=== PATIENT | male | born 1965 | race Caucasian/White ===

== ENCOUNTER 2018-10-06 19:49 | Inpatient (IN) | payer OTHER, SELFPAY ==
[2018-10-06] VITALS (15 sets, daily range): BP systolic 78–150; BP diastolic 53–99; PULSE 71–95; RESP 13–21; TEMP 36.6–36.7; O2SAT 94–100; BMI 26.2; BMI 24.5
[2018-10-06] MEDS: DiphenhydrAMINE 50 MG/ML Syringe IV ×2 (20:02→23:35)
[2018-10-06] MEDS: 0.9% Normal Saline 1,000 ML 1000 ML IV (20:02)
[2018-10-06] MEDS: MethylPREDNISolone 125 MG/2 ML Vial IV (20:03)
--- NOTE | 2018-10-06 20:04 | ED.RN ---
PT PRESENTS TO ED, WITH THROAT SWELLING DIFFICULTY BREATHING AND SWALLOWING, AND A VOICE CHANGE. 18Q PIV RAC PLACED BY FIDELIA ARAUJO AT 19:50. RAPID AIRWAY TEAM CALLED AT 19:58. 18G PIV IN THE LAC PLACED BY MEDIC AT 20:03. PT WAS GIVEN 50MG OF BENADRYL , 125MG OF SOLU-MEDROL, 200MG OF PEPCID BY FIDELIA ARELLANO IN THE LAC. 1000ML BOLUS OF NS INFUSING IN THE RAC.
[2018-10-06 20:06] LABS: Absolute Lymphocyte Count 3.33 X10^3/ul (0.83-4.51); Absolute Neutrophil Count 8.8 X10^3/uL (2.0-7.7); Basophil# 0.04 X10^3/uL; Basophil% 0.3 % (0-1); Eosinophil# 0.18 X10^3/uL; Eosinophils% 1.3 % (0-5); Hematocrit 37.2 % (40-54); Lymphocyte # 3.33 X10^3/ul (4.0); Lymphocyte % 24.9 % (19-41); Mean Corp Hgb Conc 34.9 g/gl (32-36); Mean Corpuscular Volume 91.6 fL (80-94); Mean Platelet Vol. 9.1 fl (6.2-12.0); Monocyte# 1.01 X10^3/uL; Monocyte% 7.6 % (0-10); Neutrophil # 8.75 X10^3/uL (2.7-7.7); Neutrophil % 65.5 % (47-70); Platelet Count 291 K/mm3 (150-450); RBC Distribution Width CV 13.9 % (11.6-14.6); Red Blood Count 4.06 M/mm3 (4.6-6.2); White Blood Count 13.4 K/mm3 (4.4-11.0)
--- NOTE | 2018-10-06 20:10 | PCM.HP.STD ---
Problem List (1) Angioedema Status: Acute Qualifiers: Encounter type: initial encounter Qualified Code(s): T78.3XXA - Angioneurotic edema, initial encounter (2) HTN (hypertension) Status: Chronic Qualifiers: Hypertension type: essential hypertension Qualified Code(s): I10 - Essential (primary) hypertension (3) HLD (hyperlipidemia) Status: Chronic Qualifiers: Hyperlipidemia type: unspecified Qualified Code(s): E78.5 - Hyperlipidemia, unspecified (4) Tobacco use Status: Chronic (5) Diabetes mellitus, type II Status: Chronic Qualifiers: Diabetes mellitus termite treater helper insulin use: unspecified senior living insulin use status Diabetes mellitus complication status: with unspecified complications Qualified Code(s): E11.8 - Type 2 diabetes mellitus with unspecified complications History of Present Illness Date of Admission: 10/06/18 Chief Complaint: Throat swelling, dyspnea, fullness starting afternoon The patient is a 52 y/o M w/ PMHx: HTN, HLD, Diabetes mellitus type II, Tobacco use who presents to the [facility] ED on 10/06/18 with history of no recent home medication changes x 6 years, notes belief that he is on ACEI with only recent intervention pneumonia vaccination the day prior who notes onset of progressively worsening throat edema, swelling, fullness including of the posterior oropharynx and his uvula with difficulty breathing starting earlier in the day and worsening. In the ED work-up included T 98, heart rate 95, BP 150/99, respiratory rate 21, her percent room air, CBC with WBC 13.4, hemoglobin 13, platelet 291 with left shift, pending CMP upon evaluation of patient. Given patient's appearance with notable angioedema primarily in the posterior pharynx with notably swollen uvula and garbled voice although no stridor airway call performed per ED physician who discussed case with Dr. Alex and also anesthesiology. In the ED patient administered Solu-Medrol 125 mg IV x1, famotidine 20 mg IV x1, Benadryl 50 mill grams IV x1 in addition to normal saline. Past Medical History Past Medical History (Chronic Problems): Chronic Problems HTN (hypertension) (Chronic) HLD (hyperlipidemia) (Chronic) Tobacco use (Chronic) Diabetes mellitus, type II (Chronic) Allergies No Known Allergies Allergy (Verified 10/06/18 19:50) Home Medications: Ambulatory Orders Medication Instructions Recorded Hydrocodone Bitart/Apap 5-325 1 - 2 tablet PO Q4H PRN PRN #20 08/22/15 [[place] 5/325] tablet Metformin(XR) [Glucophage Xr] 08/22/15 Naproxen [Naprosyn] 500 mg PO BID #20 tablet 08/22/15 Surgical History: no surgical history Psychiatric History: No pertinent psych hx Lives: Alone Smoking Status: Current every day smoker - Patient currently smokes 1/2 pack/day cigarette tobacco usage. Tobacco Use: Cigarettes Alcohol: Occasional - Patient notes 1-2 approximate 4 ounce whiskey type drinks every other day. Drugs: None - *Family History Maternal History Items: - - Patient has a maternal family history of cancer, cannot specify type. Paternal History Items: - - Patient notes a paternal family history of hypertension diabetes. Review of Systems Constitutional: Reports: Malaise, Weakness, Fatigue. Denies: Chills, Fever, Weight Change HEENT: Reports: Difficulty Swallowing, - - Market throat fullness, garbled speech associated.. Denies: Head Aches, Sinus Congestion, Sinus Drainage Cardiovascular: Denies: Chest Pain, Palpitations Respiratory: Reports: Shortness of Breath, Shortness of breath at rest, Shortness of breath upon exertion, - - Throat fullness.. Denies: Cough, Sputum production Gastrointestinal: Denies: Abdominal Pain, Nausea, Vomiting Genitourinary: Denies: Dysuria Musculoskeletal: Denies: Joint Pain, Joint Tenderness Skin: Denies: Rash, Wounds Neurological: Reports: Change in Speech. Denies: Focal weakness, Numbness, Tingling Psychiatric: Denies: Anxiety, Depression, Homicidal Ideations, Suicidal Ideations Hematologic/ Lymphatic: Denies: Easy Bruising, Easy Bleeding VTE Information - Inpt Only VTE Present on Admission: No VTE Mechan Device Prophylaxis: SCD's VTE Pharm Prophylaxis ordered?: Yes Subjective: Seated upright in ED bed, fatigued appearance, mildly anxious, garbled voice but no stridor evident. Objective: Physical Examination: General: awake, alert, oriented x 3 and cooperative, seated upright in the ED bed, mildly anxious, garbled voice but no obvious stridor, no evidence of respiratory distress. Skin: normal color, turgor, no icterus, cyanosis. HEENT: AT/NC, EOMI, PERRLA, dry MM, audible posterior oropharynx edema, notable uvula edema, garbled voice, no stridor, no carotid bruits or JVD noted. Lungs: CTA bilaterally, moderate effort, moderate decrease BL bases, no rales, ronchi or wheezing. Heart: Regular rate and rhythm; no gallop, rub audible. Abdomen: soft, NTTP, ND, normal BS, no HSM. Extremities: no cyanosis, clubbing, or edema. Neurological: patient awake, alert, oriented x 3; cognitive function intact; pupils equally reactive to light and accomodation; cranial nerves II-XII grossly normal, moving all 4 extremities, no focal deficits, strength moderately to severely global decrease given acute presentation. Psychiatric: affect appears mildly fatigued and mildly anxious, no acute evidence of depressive feelings. - Physical Exam Vital Signs Temp Pulse Resp BP Pulse Ox 98.0 F 93 17 150/99 H 100 10/06/18 19:51 10/06/18 19:57 10/06/18 19:57 10/06/18 19:57 10/06/18 19:57 Oxygen Delivery Method Room Air Weight: 172 lb 2.896 oz Body Mass Index (BMI) 26.2 Laboratory Tests Past 24 Hrs 10/06/18 10/06/18 19:55 19:55 WBC Pending RBC Pending Hgb Pending Hct Pending MCV Pending MCH Pending MCHC Pending RDW Pending RDW Differential Pending Plt Count Pending Neut % (Auto) Pending Absolute Neuts (auto) Pending Total Counted Pending Sodium Pending Potassium Pending Chloride Pending Carbon Dioxide Pending Anion Gap Pending BUN Pending Creatinine Pending Est GFR (MDRD) Af Amer Pending Est GFR (MDRD) Non-Af Pending BUN/Creatinine Ratio Pending Glucose Pending Calcium Pending Total Bilirubin Pending AST Pending ALT Pending Alkaline Phosphatase Pending Total Protein Pending Albumin Pending Assessment/Plan All Active Problems Angioedema (Acute) The patient is a 52 y/o M w/ PMHx: HTN, HLD, Diabetes mellitus type II, Tobacco use who presents to the [facility] ED on 10/06/18 with history of no recent home medication changes x 6 years, notes belief that he is on ACEI with only recent intervention pneumonia vaccination the day prior who notes onset of progressively worsening throat edema, swelling, fullness including of the posterior oropharynx and his uvula with difficulty breathing starting earlier in the day and worsening. (1) Anaphylactic reaction, Angioedema, possibly secondary to Chronic Medications, Including ACEI versus recent Vaccination: Airway team called to ED, pending evaluation, given edema, expect intubation likely, following secured airway will admit to the ICU, maintain on vent, continue with sedation, ICU consultation per protocol, continue scheduled benadryl, pepcid and IV solumedrol regimen, will hold any concerning medications. (2) Diabetes mellitus type II: Hold oral home regimen, continue home insulin regimen, NPO status, accu checks w/ ISS. (3) Tobacco Abuse: Encouraged cessation, inpatient consultation per RT. (4) Hypertension: As noted suspect angioedema associated w/ medication, holding, IV hydralazine in interim. 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 (6) ? Heavier EtOH Use: Patient with usually 1-2 whiskey drinks daily to every other day, suspect may be heavier. Continue to monitor and if necessary initiate CIWA protocol, MVI, thiamine and folic acid. Mag and Phos pending. (7) GERD: IV Famotidine. (8) DVT Prophylaxis: SCDs, lovenox. Code Visit Inpatient E&M: 05056 Init Hosp L3
[2018-10-06 20:12] LABS: POSITIVE COUNT NO; POSITIVE DIFFERENTIAL NO; POSITIVE MORPHOLOGY NO
--- NOTE | 2018-10-06 20:14 | HP.PCM_ITS ---
Problem List (1) Angioedema Status: Acute Qualifiers: Encounter type: initial encounter Qualified Code(s): T78.3XXA - Angioneurotic edema, initial encounter (2) HTN (hypertension) Status: Chronic Qualifiers: Hypertension type: essential hypertension Qualified Code(s): I10 - Essential (primary) hypertension (3) HLD (hyperlipidemia) Status: Chronic Qualifiers: Hyperlipidemia type: unspecified Qualified Code(s): E78.5 - Hyperlipidemia, unspecified (4) Tobacco use Status: Chronic (5) Diabetes mellitus, type II Status: Chronic Qualifiers: Diabetes mellitus termite control service representative insulin use: unspecified assisted insulin use status Diabetes mellitus complication status: with unspecified complications Qualified Code(s): E11.8 - Type 2 diabetes mellitus with unspecified complications History of Present Illness Date of Admission: 10/06/18 Chief Complaint: Throat swelling, dyspnea, fullness starting afternoon The patient is a 52 y/o M w/ PMHx: HTN, HLD, Diabetes mellitus type II, Tobacco use who presents to the [facility] ED on 10/06/18 with history of no recent home medication changes x 6 years, notes belief that he is on ACEI with only recent intervention pneumonia vaccination the day prior who notes onset of progressively worsening throat edema, swelling, fullness including of the posterior oropharynx and his uvula with difficulty breathing starting earlier in the day and worsening. In the ED work-up included T 98, heart rate 95, BP 150/ 99, respiratory rate 21, her percent room air, CBC with WBC 13.4, hemoglobin 13, platelet 291 with left shift, pending CMP upon evaluation of patient. Given patient's appearance with notable angioedema primarily in the posterior pharynx with notably swollen uvula and garbled voice although no stridor airway call performed per ED physician who discussed case with Dr. Alex and also anesthesiology. In the ED patient administered Solu-Medrol 125 mg IV x1, famotidine 20 mg IV x1, Benadryl 50 mill grams IV x1 in addition to normal saline. Past Medical History Past Medical History (Chronic Problems): Chronic Problems HTN (hypertension) (Chronic) HLD (hyperlipidemia) (Chronic) Tobacco use (Chronic) Diabetes mellitus, type II (Chronic) Allergies No Known Allergies Allergy (Verified 10/06/18 19:50) Home Medications: Ambulatory Orders Medication Instructions Recorded Hydrocodone Bitart/Apap 5-325 1 - 2 tablet PO Q4H PRN PRN #20 08/22/15 [[place] 5/325] tablet Metformin(XR) [Glucophage Xr] 08/22/15 Naproxen [Naprosyn] 500 mg PO BID #20 tablet 08/22/15 Surgical History: no surgical history Psychiatric History: No pertinent psych hx Lives: Alone Smoking Status: Current every day smoker - Patient currently smokes 1/2 pack/day cigarette tobacco usage. Tobacco Use: Cigarettes Alcohol: Occasional - Patient notes 1-2 approximate 4 ounce whiskey type drinks every other day. Drugs: None - *Family History Maternal History Items: - - Patient has a maternal family history of cancer, cannot specify type. Paternal History Items: - - Patient notes a paternal family history of hypertension diabetes. Review of Systems Constitutional: Reports: Malaise, Weakness, Fatigue. Denies: Chills, Fever, Weight Change HEENT: Reports: Difficulty Swallowing, - - Market throat fullness, garbled speech associated.. Denies: Head Aches, Sinus Congestion, Sinus Drainage Cardiovascular: Denies: Chest Pain, Palpitations Respiratory: Reports: Shortness of Breath, Shortness of breath at rest, Shortness of breath upon exertion, - - Throat fullness.. Denies: Cough, Sputum production Gastrointestinal: Denies: Abdominal Pain, Nausea, Vomiting Genitourinary: Denies: Dysuria Musculoskeletal: Denies: Joint Pain, Joint Tenderness Skin: Denies: Rash, Wounds Neurological: Reports: Change in Speech. Denies: Focal weakness, Numbness, Tingling Psychiatric: Denies: Anxiety, Depression, Homicidal Ideations, Suicidal Ideations Hematologic/ Lymphatic: Denies: Easy Bruising, Easy Bleeding VTE Information - Inpt Only VTE Present on Admission: No VTE Mechan Device Prophylaxis: SCD's VTE Pharm Prophylaxis ordered?: Yes Subjective: Seated upright in ED bed, fatigued appearance, mildly anxious, garbled voice but no stridor evident. Objective: Physical Examination: General: awake, alert, oriented x 3 and cooperative, seated upright in the ED bed, mildly anxious, garbled voice but no obvious stridor, no evidence of respiratory distress. Skin: normal color, turgor, no icterus, cyanosis. HEENT: AT/NC, EOMI, PERRLA, dry MM, audible posterior oropharynx edema, notable uvula edema, garbled voice, no stridor, no carotid bruits or JVD noted. Lungs: CTA bilaterally, moderate effort, moderate decrease BL bases, no rales, ronchi or wheezing. Heart: Regular rate and rhythm; no gallop, rub audible. Abdomen: soft, NTTP, ND, normal BS, no HSM. Extremities: no cyanosis, clubbing, or edema. Neurological: patient awake, alert, oriented x 3; cognitive function intact; pupils equally reactive to light and accomodation; cranial nerves II-XII grossly normal, moving all 4 extremities, no focal deficits, strength moderately to severely global decrease given acute presentation. Psychiatric: affect appears mildly fatigued and mildly anxious, no acute evidence of depressive feelings. - Physical Exam Vital Signs Temp Pulse Resp BP Pulse Ox 98.0 F 93 17 150/99 H 100 10/06/18 19:51 10/06/18 19:57 10/06/18 19:57 10/06/18 19:57 10/06/18 19:57 Oxygen Delivery Method Room Air Weight: 172 lb 2.896 oz Body Mass Index (BMI) 26.2 Laboratory Tests Past 24 Hrs 10/06/18 10/06/18 19:55 19:55 WBC Pending RBC Pending Hgb Pending Hct Pending MCV Pending MCH Pending MCHC Pending RDW Pending RDW Differential Pending Plt Count Pending Neut % (Auto) Pending Absolute Neuts (auto) Pending Total Counted Pending Sodium Pending Potassium Pending Chloride Pending Carbon Dioxide Pending Anion Gap Pending BUN Pending Creatinine Pending Est GFR (MDRD) Af Amer Pending Est GFR (MDRD) Non-Af Pending BUN/Creatinine Ratio Pending Glucose Pending Calcium Pending Total Bilirubin Pending AST Pending ALT Pending Alkaline Phosphatase Pending Total Protein Pending Albumin Pending Assessment/Plan All Active Problems Angioedema (Acute) The patient is a 52 y/o M w/ PMHx: HTN, HLD, Diabetes mellitus type II, Tobacco use who presents to the [facility] ED on 10/06/18 with history of no recent home medication changes x 6 years, notes belief that he is on ACEI with only recent intervention pneumonia vaccination the day prior who notes onset of progressively worsening throat edema, swelling, fullness including of the posterior oropharynx and his uvula with difficulty breathing starting earlier in the day and worsening. (1) Anaphylactic reaction, Angioedema, possibly secondary to Chronic Medications, Including ACEI versus recent Vaccination: Airway team called to ED, pending evaluation, given edema, expect intubation likely, following secured airway will admit to the ICU, maintain on vent, continue with sedation, ICU consultation per protocol, continue scheduled benadryl, pepcid and IV solumedrol regimen, will hold any concerning medications. (2) Diabetes mellitus type II: Hold oral home regimen, continue home insulin regimen, NPO status, accu checks w/ ISS. (3) Tobacco Abuse: Encouraged cessation, inpatient consultation per RT. (4) Hypertension: As noted suspect angioedema associated w/ medication, holding, IV hydralazine in interim. 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 (6) ? Heavier EtOH Use: Patient with usually 1-2 whiskey drinks daily to every other day, suspect may be heavier. Continue to monitor and if necessary initiate CIWA protocol, MVI, thiamine and folic acid. Mag and Phos pending. (7) GERD: IV Famotidine. (8) DVT Prophylaxis: SCDs, lovenox. Code Visit Inpatient E&M: 25098 Init Hosp L3
[2018-10-06 20:20] LABS: ALB/GLOB Ratio 1.2 RATIO (0.9-2.4); AST(SGOT) 44 U/L (15-37); Alanine Aminotransfer ALT/SGPT 45 U/L (16-61); Albumin, Serum 4.4 g/dL (3.2-5.0); Alkaline Phosphatase 74 U/L (45-117); Anion Gap 9 (5-15); BUN 16 mg/dL (7-18); BUN/Creat Ratio 14.2 RATIO (10-20); Calcium,Total 9.9 mg/dL (8.5-10.1); Chloride 101 mmol/L (98-107); Creatinine, Serum 1.13 mg/dL (0.70-1.30); EST Glomerular Filtration Rate 72 mL/min (>60); Est Glom Filt Rate - Afr Amer 87 mL/min (>60); Globulin 3.6 g/dL (2.2-4.2); Glucose 56 mg/dL (74-106); Potassium 3.8 mmol/L (3.5-5.1); Sodium Level 134 mmol/L (136-145)
--- NOTE | 2018-10-06 20:22 | ED.RN ---
2% LIDOCAINE 50MG 20:23 RAC, 200MG PROPOFOL 2023 RAC, 180MG SUCC 2023 RAC BY AIRWAY TEAM, INTUBATION 2024 7.5 TUBE, 19.[address] AT LIP INTUBATION BY DR. SAVAGE.
[2018-10-06] MEDS: Propofol 10MG/Ml 1,000 MG/100 ML Bottle 4.686 MG CONT INF (20:28)
[2018-10-06] MEDS: morphine 10 MG/ML Syringe IV (20:34)
[2018-10-06] MEDS: Midazolam 2 MG/2 ML Syringe IV (20:37)
--- NOTE | 2018-10-06 20:55 | RAD_ITS ---
STUDY: X-RAY CHEST REASON FOR EXAM: Male, 52 years old. NG tube and ET tube placement TECHNIQUE: 1 view COMPARISON: None. FINDINGS: The lungs are clear and expanded. There is no demonstrated pleural abnormality. An NG tube and ET tube are in place with the ET tube 3.4 cm above the ofelia Normal size heart. Normal mediastinum and opal. Normal visualized pulmonary arteries. Normal visualized aortic arch and descending thoracic aorta. Normal visualized thoracic spine. Normal visualized ribs, clavicles, and shoulders. There is no demonstrated abnormality of the visualized soft tissue structures of the upper abdomen. RAD/Chest 1 View (Portable) IMPRESSION: No acute findings in the lungs. An NG tube and ET tube are in place with the ETT 3.4 cm above the ofelia Electronically Signed: Florentin Garibay MD at 2:42 EDT Tel , Service support ,
[2018-10-06] MEDS: Succinylcholine Chloride 200 MG/10 ML Vial 180 MG IV (20:57)
[2018-10-06] MEDS: Propofol 200 MG/20 ML Vial IV BOLUS (20:57)
[2018-10-06] MEDS: Lidocaine 2% 100 MG/5 ML Syringe 50 MG IV BOLUS (20:57)
[2018-10-06] MEDS: Ketamine HCl 500 MG/5 ML Vial 150 MG IV (21:26)
--- NOTE | 2018-10-06 21:36 | ED.RN ---
REPORT GIVEN TO FIDELIA MUSTAFA AT 1576 FOR ICU BED 1.
--- NOTE | 2018-10-06 21:47 | ED.DCSUM_ITS ---
- ER Visit Summary Date of Service: 10/06/18 Chief Complaint: Throat swelling History of Present Illness: The patient is a 52 M. Who presents to the emergency department with atraumatic swelling. The patient states that he began early this evening. He states he felt like his throat was closing and he was having difficulty breathing. The patient is on an HANY inhibitor. He is never had this before. He denies any fevers or chills. He denies any shortness of breath, but feels like his throat is closing. Physical Examination: Exam is relatively unremarkable except for examination of the oropharynx. He does have rather significant angioedema of the soft palate and posterior oropharynx with significant swelling of the uvula and compression down to the base of the tongue. There was no stridor. He is tolerating secretions. Test Results: [] Emergency Department Course and Treatment: The patient does have significant angioedema with compression of his oropharynx. Airway team was activated. Patient was treated with antiallergic medication with really no improvement. I discussed with the patient with Dr. Mitchell and Dr. Man. Decision was made to intubate the patient in the emergency department. This was done by anesthesia. The patient was intubated with the glide scope. There was significant swelling of the posterior oropharynx down into the supraglottic area. Chest x-ray does show the tube to be in good position. The patient will be admitted for further care of his angioedema. Treatment Plan: [] Disposition: Admission Impression: 1. Acute angioedema 2. Respiratory failure This note was generated with [employer] software. It may contain incorrect words, spelling, and punctuation that were not noted in review of the chart prior to signing
--- NOTE | 2018-10-06 22:13 | ED.RN ---
CALLED PT'S BOSBennett DUBOIS PER HIS REQUEST PRIOR TO BEING INTUBATED. NOTIFIED LALO THAT DUE TO A MEDICAL EMERGENCY HE WOULD NOT BE ABLE TO COME TO WORK.
[2018-10-06 22:31] LABS: Magnesium 1.6 mg/dL (1.6-2.6)
[2018-10-06] MEDS: 0.9% Normal Saline 1,000 ML 150 ML IV (22:40)
[2018-10-06] MEDS: Chlorhexidine 15 ML PO (22:40)
--- NOTE | 2018-10-06 23:21 | NURSING ---
Tele monitor did not take a 2245 blood pressure
[2018-10-06 23:24] LABS: CPK Total, Creatine Kinase 902 U/L (39-308); Triglycerides 389 mg/dL
[2018-10-06] MEDS: 0.9% NaCl Peripheral Flush Adult/Peds IV (23:35)
[2018-10-06 23:40] LABS: Alcohol, Blood (Medical)-Serum < 3.0 mg/dL
[2018-10-07] VITALS (31 sets, daily range): BP systolic 82–160; BP diastolic 59–99; PULSE 52–72; RESP 12–18; TEMP 35.9–37.2; O2SAT 95–99
[2018-10-07 00:06] LABS: Bedside Glucose 132 mg/dL (70-110)
[2018-10-07 00:41] LABS: Amphetamine Urine VISTA NEGATIVE (<1000 ng/mL); Barbiturate Urine VISTA NEGATIVE (< 200 ng/mL); Benzodiazepine Urine VISTA POSITIVE (< 200 ng/mL); Cocaine Urine VISTA NEGATIVE (< 300 ng/mL); Ecstacy Urine VISTA NEGATIVE (< 500 ng/mL); Methadone Urine VISTA NEGATIVE (< 300 ng/mL); PCP Urine VISTA NEGATIVE (< 25 ng/mL); THC Urine VISTA NEGATIVE (< 50 ng/mL); Vista UDS pH Range 6
--- NOTE | 2018-10-07 02:31 | EKG12_ITS ---
Test Reason : ASHRADER Blood Pressure : / mmHG Vent. Rate : 065 BPM Atrial Rate : 065 BPM P-R Int : 152 ms QRS Dur : 106 ms QT Int : 404 ms P-R-T Axes : 023 009 004 degrees QTc Int : 420 ms Normal sinus rhythm Normal ECG No previous ECGs available Confirmed by CARLO MEJIA, TALAT ([id number]), editor department FELIX ALLISON ([id number]) on 10/16/2018 11:27:09 AM Referred By: RIKI Confirmed By:TALAT MATOS MD
[2018-10-07] MEDS: 0.9% Normal Saline 1,000 ML 150 ML IV (04:33)
[2018-10-07 04:53] LABS: Absolute Lymphocyte Count 0.88 X10^3/ul (0.83-4.51); Absolute Neutrophil Count 10.7 X10^3/uL (2.0-7.7); Basophil# 0.01 X10^3/uL; Basophil% 0.1 % (0-1); Eosinophil# 0.01 X10^3/uL; Eosinophils% 0.1 % (0-5); Hematocrit 32.3 % (40-54); Hemoglobin 10.7 g/dl (13.0-16.5); Lymphocyte # 0.88 X10^3/ul (4.0); Lymphocyte % 7.5 % (19-41); Mean Corp Hgb Conc 33.1 g/gl (32-36); Mean Corpuscular Hgb 30.3 pg (27.0-32.0); Mean Corpuscular Volume 91.5 fL (80-94); Mean Platelet Vol. 9.5 fl (6.2-12.0); Monocyte# 0.16 X10^3/uL; Monocyte% 1.4 % (0-10); Neutrophil # 10.68 X10^3/uL (2.7-7.7); Neutrophil % 90.6 % (47-70); Platelet Count 255 K/mm3 (150-450); RBC Distribution Width CV 13.6 % (11.6-14.6); RBC Distribution Width SD 44.3 fl (35.1-43.9); Red Blood Count 3.53 M/mm3 (4.6-6.2); White Blood Count 11.8 K/mm3 (4.4-11.0)
[2018-10-07 04:54] LABS: POSITIVE COUNT NO; POSITIVE DIFFERENTIAL NO; POSITIVE MORPHOLOGY NO
[2018-10-07 05:13] LABS: Anion Gap 7 (5-15); BUN 17 mg/dL (7-18); Calcium,Total 8.2 mg/dL (8.5-10.1); Chloride 103 mmol/L (98-107); EST Glomerular Filtration Rate 83 mL/min (>60); Est Glom Filt Rate - Afr Amer 100 mL/min (>60); Estimated Creatinine Clearance 87.19 ml/min; Glucose 218 mg/dL (74-106); Potassium 5.5 mmol/L (3.5-5.1); Sodium Level 133 mmol/L (136-145)
[2018-10-07] MEDS: Insulin Lispro 100 UNIT/ML INSULN.PEN SC ×4 (05:30→23:04)
[2018-10-07] MEDS: DiphenhydrAMINE 50 MG/ML Syringe IV ×4 (05:31→23:04)
[2018-10-07 05:51] LABS: Bedside Glucose 250 mg/dL (70-110)
--- NOTE | 2018-10-07 05:55 | RAD_ITS ---
STUDY: X-RAY CHEST REASON FOR EXAM: Male, 52 years old. Shortness breath. TECHNIQUE: Single AP portable view of the chest. COMPARISON: October 06, 2018. FINDINGS: Stable NG tube and enteric tube. The lungs are clear and expanded. There is no demonstrated pleural abnormality. Normal size heart. Normal mediastinum and opal. Normal visualized pulmonary arteries. There is atherosclerotic calcification of the aortic arch with tortuosity. No visualized osseous changes. There is no demonstrated abnormality of the visualized soft tissue structures of the upper abdomen. RAD/Chest 1 View (Portable) IMPRESSION: No interval change. Electronically Signed: Cruz Arellano DO at 8:21 EDT Tel [phone], Service support ,
--- NOTE | 2018-10-07 06:27 | PCM.CON.CC ---
Reason for Consult Date of Consultation: 10/07/18 Reason for Consultation: Respiratory failure History of Present Illness: The patient is a 52-year-old male, with a history as outlined below, who presented to the emergency department on October 06 with shortness of breath and perceived throat fullness. History pertinent to the patient's hospitalization was obtained primarily via chart review, as the patient is currently intubated and there is no family available at the bedside. The patient reportedly has a history of diabetes mellitus, hypertension, hyperlipidemia, tobacco dependency and alcohol dependency as well. The patient reportedly consumed several whiskey drinks daily. Although unclear, it is believed that the patient is currently prescribed an HANY inhibitor on an outpatient basis. He was noted to have received a pneumococcal vaccination the day prior to the onset of his symptoms. On presentation to the emergency department, the patient was noted to be afebrile and hemodynamically stable. He was initially maintaining appropriate oxygen saturations on room air. Laboratory evaluation revealed an elevated white blood cell count to 13,000. Chemistry profile was largely unremarkable. Total CK was elevated to 902. Toxicology screen was positive for opiates and benzodiazepines. Alcohol level was negative. During his evaluation in the emergency department, the patient was noted to have significant angioedema. No stridor was noted on examination. The patient did require eventual intubation over concerns for airway patency. The patient was subsequently admitted to the medical intensive care unit for ongoing management. The patient initially presented to the ICU on a continuous Versed infusion. That medication was immediately discontinued. He was subsequently placed on Precedex for sedation. Overnight, the patient has been receiving Benadryl, Pepcid and steroids. FiO2 requirement is minimal. Past Medical History Past Medical History (Chronic Problems): Chronic Problems HTN (hypertension) (Chronic) HLD (hyperlipidemia) (Chronic) Tobacco use (Chronic) Diabetes mellitus, type II (Chronic) Allergies No Known Allergies Allergy (Verified 10/06/18 19:50) Home Medications: Ambulatory Orders Medication Instructions Recorded Hydrocodone Bitart/Apap 5-325 1 - 2 tablet PO Q4H PRN PRN #20 08/22/15 [[place] 5/325] tablet Metformin(XR) [Glucophage Xr] 08/22/15 Naproxen [Naprosyn] 500 mg PO BID #20 tablet 08/22/15 Surgical History: no surgical history Psychiatric History: No pertinent psych hx Lives: Alone Smoking Status: Current every day smoker Tobacco Use: Cigarettes Alcohol: Occasional - Patient notes 1-2 approximate 4 ounce whiskey type drinks every other day. Drugs: None - *Family History Maternal History Items: - - Patient has a maternal family history of cancer, cannot specify type. Paternal History Items: - - Patient notes a paternal family history of hypertension diabetes. Review of Systems Unable to obtain accurate/complete ROS d/t: Due to current intubation and mechanical ventilation status Patient Problems: Active and Suspected Problems Angioedema (Acute) Objective: The patient's most recent lab work, culture data and imaging studies have all been personally reviewed. - Physical Exam General: - - Intubated, sedated and mechanically ventilated. No ventilator dyssynchrony noted. HEENT: Atraumatic, PERRLA, Normocephalic Oral: No Gingival or Mucosal Lesions/ Ulcerations, - - No significant edema visible. Endotracheal and OG tubes in place Neck: Supple, No Nodes, Trachea Midline Lungs: - - Clear across anterior lung nicolas without appreciable wheezes, rales or rhonchi. Cardiovascular: Normal S1, Normal S2, No murmurs, Bradycardic Abdomen: Bowel Sounds Present, Soft, Non Tender, Non-Distended Extremities: No clubbing, No cyanosis, No edema Skin: No breakdown Musculoskeletal: No Tenderness to Palpation of Joints or Extremities, No Muscle Wasting Lymphatic: No Cervical, Supraclavicular, or Inguinal Adenopathy Neurological: - - No focal neurological deficits. Currently sedated. Vital Signs Temp Pulse Resp BP Pulse Ox 97.6 F L 60 14 105/74 98 10/07/18 05:00 10/07/18 06:00 10/07/18 06:00 10/07/18 06:00 10/07/18 06:00 Oxygen Delivery Method Mechanical Ventilator Weight: 171 lb 4.787 oz Body Mass Index (BMI) 24.5 Intake and Output for Last 24 Hours 10/05/18 10/06/18 10/07/18 23:59 23:59 23:59 Intake Total 238.8 / 238.8 981.5 / 981.5 Output Total 550 / 550 475 / 475 Balance -311.2 / -311.2 506.5 / 506.5 Laboratory Tests Past 24 Hrs 05/11/19 05/11/19 05/11/19 19:55 19:55 19:55 WBC 13.4 H RBC 4.06 L Hgb 13.0 Hct 37.2 L MCV 91.6 MCH 32.0 MCHC 34.9 RDW 13.9 RDW Differential 46.0 H Plt Count 291 MPV 9.1 Immature Gran % (Auto) 0.400 Neut % (Auto) 65.5 Lymph % (Auto) 24.9 [place] % (Auto) 7.6 Eos % (Auto) 1.3 Baso % (Auto) 0.3 Absolute Neuts (auto) 8.8 H Absolute Lymphs (auto) 3.33 Total Counted Not Reportable Sodium 134 L Potassium 3.8 Chloride 101 Carbon Dioxide 24.0 Anion Gap 9 BUN 16 Creatinine 1.13 Estim Creat Clear Calc 72.30 Est GFR (MDRD) Af Amer 87 Est GFR (MDRD) Non-Af 72 BUN/Creatinine Ratio 14.2 Glucose 56 L Calcium 9.9 Phosphorus 4.0 Magnesium 1.6 Total Bilirubin 0.20 AST 44 H ALT 45 Alkaline Phosphatase 74 Total Creatine Kinase Total Protein 8.0 Albumin 4.4 Globulin 3.6 Albumin/Globulin Ratio 1.2 Triglycerides Urine Opiates Screen Urine Methadone Screen Ur Barbiturates Screen Ur Phencyclidine Scrn Ur Amphetamines Screen U Methamphetamin-MDMA U Benzodiazepines Scrn Urine Cocaine Screen U Cannabinoids Screen Ur Drug Screen Comment Ethyl Alcohol 10/06/18 10/06/18 10/06/18 19:55 23:00 23:00 WBC RBC Hgb Hct MCV MCH MCHC RDW RDW Differential Plt Count MPV Immature Gran % (Auto) Neut % (Auto) Lymph % (Auto) [place] % (Auto) Eos % (Auto) Baso % (Auto) Absolute Neuts (auto) Absolute Lymphs (auto) Total Counted Sodium Potassium Chloride Carbon Dioxide Anion Gap BUN Creatinine Estim Creat Clear Calc Est GFR (MDRD) Af Amer Est GFR (MDRD) Non-Af BUN/Creatinine Ratio Glucose Calcium Phosphorus Magnesium Total Bilirubin AST ALT Alkaline Phosphatase Total Creatine Kinase 902 H Total Protein Albumin Globulin Albumin/Globulin Ratio Triglycerides 389 H Urine Opiates Screen POSITIVE H Urine Methadone Screen NEGATIVE Ur Barbiturates Screen NEGATIVE Ur Phencyclidine Scrn NEGATIVE Ur Amphetamines Screen NEGATIVE U Methamphetamin-MDMA NEGATIVE U Benzodiazepines Scrn POSITIVE H Urine Cocaine Screen NEGATIVE U Cannabinoids Screen NEGATIVE Ur Drug Screen Comment Ethyl Alcohol < 3.0 05/12/19 05/12/19 04:35 04:35 WBC 11.8 H RBC 3.53 L Hgb 10.7 L Hct 32.3 L MCV 91.5 MCH 30.3 MCHC 33.1 RDW 13.6 RDW Differential 44.3 H Plt Count 255 MPV 9.5 Immature Gran % (Auto) 0.300 Neut % (Auto) 90.6 H Lymph % (Auto) 7.5 L [place] % (Auto) 1.4 Eos % (Auto) 0.1 Baso % (Auto) 0.1 Absolute Neuts (auto) 10.7 H Absolute Lymphs (auto) 0.88 Total Counted Not Reportable Sodium 133 L Potassium 5.5 H Chloride 103 Carbon Dioxide 23.0 Anion Gap 7 BUN 17 Creatinine 1.00 Estim Creat Clear Calc 87.19 Est GFR (MDRD) Af Amer 100 Est GFR (MDRD) Non-Af 83 BUN/Creatinine Ratio 17.0 Glucose 218 H Calcium 8.2 L Phosphorus Magnesium Total Bilirubin AST ALT Alkaline Phosphatase Total Creatine Kinase Total Protein Albumin Globulin Albumin/Globulin Ratio Triglycerides Urine Opiates Screen Urine Methadone Screen Ur Barbiturates Screen Ur Phencyclidine Scrn Ur Amphetamines Screen U Methamphetamin-MDMA U Benzodiazepines Scrn Urine Cocaine Screen U Cannabinoids Screen Ur Drug Screen Comment Ethyl Alcohol POC Glucose 10/07/18 10/06/18 05:21 23:30 POC Glucose 250 H 132 H Clinical Impression(s) from Imaging Studies Chest X-Ray 10/06/18 20:55 IMPRESSION: No acute findings in the lungs. An NG tube and ET tube are in place with the ETT 3.4 cm above the ofelia Electronically Signed: Florentin Garibay MD at 2:42 EDT Tel , Service support , Assessment/Plan Active and Suspected Problems Angioedema (Acute) RECOMMENDATIONS: 1. Continue Precedex for sedation. 2. Continue thiamine and folate repletion. 3. Continue as needed bronchodilators. 4. Continue Benadryl, Pepcid and steroids as ordered. 5. Discontinue supplemental IV fluids and start tube feeds today. 6. Perform daily paired spontaneous awakening and breathing trials. Check cuff leak as well. 7. Obtain arterial blood gas this morning. 8. Continue appropriate ICU prophylaxis as ordered. IMPRESSIONS: 1. Acute respiratory failure The patient was intubated in the emergency department over concerns for airway patency in the setting of acute onset angioedema. Per documentation, the vast majority of the patient's airway edema was in the posterior oropharynx. The exact precipitating etiology for the patient's angioedema is still a bit unclear. We will need to clarify with the patient's family with regards to his home medication list, in particular, the use of an HANY inhibitor. In addition, there is some documentation that he received a pneumococcal vaccination the day prior to the onset of his symptoms. For now, we will plan to continue invasive mechanical ventilatory support. Continue scheduled Benadryl, Pepcid and steroids as ordered. Continue Precedex for sedation. Okay from my perspective to initiate tube feeds today. Plan to perform spontaneous awakening and breathing trials beginning tomorrow. 2. History of alcohol and tobacco dependency It is reasonable to continue as needed bronchodilators. The patient will be monitored for signs of alcohol withdrawal. Continue thiamine and folate repletion. Continue Precedex for sedation. 3. Hyperkalemia We will administer Kayexalate. 4. Hypertension/hyperlipidemia/GERD/diabetes mellitus Complicates care, management, recovery and prognosis. There is no current need for antihypertensives. Will need to clarify with the patient's family with regards to his home medication list, and in particular, the use of an HANY inhibitor. Tube feeds can be initiated today from my perspective. Continue sliding scale insulin coverage. TIME: 40 minutes of critical care time, independent of procedures, was spent addressing the patient's acute respiratory failure, suspected angioedema, history of alcohol and tobacco dependency, hyperkalemia, review of all data and collaboration with the care team. ([id number]) Code Visit 9xxxx: [id number] Critical care first hour
[2018-10-07] MEDS: Sodium Polystyrene Sulfonate 15 GM/60 ML UDC 30 GM PO (09:35)
[2018-10-07] MEDS: Chlorhexidine 15 ML PO ×2 (09:37→21:28)
--- NOTE | 2018-10-07 09:37 | PCM.PN.HOSP ---
Patient Problems: Active and Suspected Problems Angioedema (Acute) Subjective: Remained on vent overnight. Vitals/I&O's: Vital Signs Temp Pulse Resp BP Pulse Ox 36.3 C L 55 L 14 117/79 97 10/07/18 08:00 10/07/18 09:00 10/07/18 09:00 10/07/18 09:00 10/07/18 09:00 Oxygen Delivery Method Mechanical Ventilator Weight: 77.7 kg Body Mass Index (BMI) 24.5 Intake and Output for Last 24 Hours 10/05/18 10/06/18 10/07/18 23:59 23:59 23:59 Intake Total 238.8 / 238.8 981.5 / 981.5 Output Total 550 / 550 475 / 475 Balance -311.2 / -311.2 506.5 / 506.5 General: - - intubated. sedated. afebrile. HEENT: Atraumatic, Normocephalic Oral: Moist Mucosa, No Gingival or Mucosal Lesions/ Ulcerations Neck: No Nodes, Thyroid Normal Size and Texture Lungs: Clear to auscultation, Normal air movement, No rhonchi, No wheeze Cardiovascular: Regular rate, Regular Rhythm, Normal S1, Normal S2, No murmurs Abdomen: Bowel Sounds Present, Soft, Non Tender, Non-Distended, No Hepato-splenomegaly Extremities: No edema, No Calf Tenderness Skin: No rashes, No breakdown Musculoskeletal: No Tenderness to Palpation of Joints or Extremities, No Muscle Wasting Neurological: Deep Tendon Reflexes 2+/4 and Symmetrical Laboratory Results 10/06/18 19:55: WBC 13.4 H, RBC 4.06 L, Hgb 13.0, Hct 37.2 L, MCV 91.6, MCH 32.0, MCHC 34.9, RDW 13.9, RDW Differential 46.0 H, Plt Count 291, MPV 9.1, Immature Gran % (Auto) 0.400, Neut % (Auto) 65.5, Lymph % (Auto) 24.9, [place] % (Auto) 7.6, Eos % (Auto) 1.3, Baso % (Auto) 0.3, Absolute Neuts (auto) 8.8 H, Absolute Lymphs (auto) 3.33, Total Counted Not Reportable 10/06/18 19:55: Sodium 134 L, Potassium 3.8, Chloride 101, Carbon Dioxide 24.0, Anion Gap 9, BUN 16, Creatinine 1.13, Estim Creat Clear Calc 72.30, Est GFR (MDRD) Af Amer 87, Est GFR (MDRD) Non-Af 72, BUN/Creatinine Ratio 14.2, Glucose 56 L, Calcium 9.9, Total Bilirubin 0.20, AST 44 H, ALT 45, Alkaline Phosphatase 74, Total Protein 8.0, Albumin 4.4, Globulin 3.6, Albumin/Globulin Ratio 1.2 10/06/18 19:55: Phosphorus 4.0, Magnesium 1.6 10/06/18 19:55: Total Creatine Kinase 902 H, Triglycerides 389 H 10/06/18 23:00: Ethyl Alcohol < 3.0 10/06/18 23:00: Urine Opiates Screen POSITIVE H, Urine Methadone Screen NEGATIVE, Ur Barbiturates Screen NEGATIVE, Ur Phencyclidine Scrn NEGATIVE, Ur Amphetamines Screen NEGATIVE, U Methamphetamin-MDMA NEGATIVE, U Benzodiazepines Scrn POSITIVE H, Urine Cocaine Screen NEGATIVE, U Cannabinoids Screen NEGATIVE, Ur Drug Screen Comment 10/06/18 23:30: POC Glucose 132 H 10/07/18 04:35: WBC 11.8 H, RBC 3.53 L, Hgb 10.7 L, Hct 32.3 L, MCV 91.5, MCH 30.3, MCHC 33.1, RDW 13.6, RDW Differential 44.3 H, Plt Count 255, MPV 9.5, Immature Gran % (Auto) 0.300, Neut % (Auto) 90.6 H, Lymph % (Auto) 7.5 L, [place] % (Auto) 1.4, Eos % (Auto) 0.1, Baso % (Auto) 0.1, Absolute Neuts (auto) 10.7 H, Absolute Lymphs (auto) 0.88, Total Counted Not Reportable 10/07/18 04:35: Sodium 133 L, Potassium 5.5 H, Chloride 103, Carbon Dioxide 23.0, Anion Gap 7, BUN 17, Creatinine 1.00, Estim Creat Clear Calc 87.19, Est GFR (MDRD) Af Amer 100, Est GFR (MDRD) Non-Af 83, BUN/Creatinine Ratio 17.0, Glucose 218 H, Calcium 8.2 L 10/07/18 05:21: POC Glucose 250 H Current Medications Acetaminophen (Tylenol) 650 mg PO Q6H PRN PRN PRN Reason: Non-cardiac pain (mod-severe) Albuterol Sulfate (Ventolin Aerosols) 2.5 mg INHALATION Q2H PRN PRN PRN Reason: dyspnea, wheezing Chlorhexidine Gluconate () 15 ml PO BID [facility] Last Admin: 10/06/18 22:40 Dose: 15 ml Dextrose (D50w Syringe) 0 gm IV X1 PRN; Protocol PRN Reason: Hypoglycemia Diphenhydramine HCl (Benadryl) 50 mg IV Q6H [facility] Last Admin: 10/07/18 05:31 Dose: 50 mg Enoxaparin Sodium (Lovenox) 40 mg SC DAILY@1000 [facility] Famotidine (Pepcid) 20 mg GT BID [facility] Folic Acid (Folic Acid) 1 mg PO DAILY@0800 [facility] Stop: 10/08/18 08:01 Glucagon () 1 mg IM .X1 PRN PRN Reason: Hypoglycemia Hydralazine HCl (Apresoline Iv) 10 mg IV Q4H PRN PRN PRN Reason: SBP > 160 Fentanyl () 100 mls @ 5 mls/hr IV .Q20H [facility] Folic Acid 1 mg/ Sodium (Chloride) 50.2 mls @ 200 mls/hr IV DAILY [facility] Stop: 10/07/18 10:16 Last Admin: 10/06/18 23:24 Dose: 200 mls/hr Thiamine HCl 100 mg/ Sodium (Chloride) 51 mls @ 200 mls/hr IV DAILY [facility] Stop: 10/07/18 10:16 Last Admin: 10/06/18 22:50 Dose: 200 mls/hr Dexmedetomidine HCl 400 mcg/ (Sodium Chloride) 100 mls @ 9.76 mls/hr CONT INF .[id number] [facility] Last Admin: 10/07/18 05:31 Dose: 9.76 mls/hr Sodium Chloride () 250 mls @ 15 mls/hr IV .[id number] PRN PRN Reason: SALINE FLUSH Enteral Nutritional Formula (Vital Af 1.2 Wily Liquid) 1,000 mls @ 65 mls/hr GT .[id number] [facility] Insulin Human Lispro (Humalog Kwikpen (Bkc)) 0 unit SC Q6 [facility]; Protocol Last Admin: 10/07/18 05:30 Dose: 3 u Lorazepam (Ativan) 2 mg PO Q2H PRN PRN; Protocol PRN Reason: CIWA score > 8 but <15 Lorazepam (Ativan) 2 mg IV Q2H PRN PRN; Protocol PRN Reason: CIWA score > 8 but <15 Lorazepam (Ativan) 2 mg PO UD PRN; Protocol PRN Reason: CIWA score >/=15. Lorazepam (Ativan) 2 mg IV UD PRN; Protocol PRN Reason: CIWA score >/=15. Methylprednisolone (Solu-Medrol) 40 mg IV Q8 [facility] Last Admin: 10/07/18 05:32 Dose: 40 mg Ondansetron HCl (Zofran) 4 mg IV Q8H PRN PRN PRN Reason: NAUSEA/VOMITING Sodium Chloride () 5 - 15 ml IV UD PRN PRN Reason: SALINE FLUSH Last Admin: 10/06/18 23:35 Dose: 15 ml Thiamine HCl (Vitamin B1) 200 mg PO DAILYCM [facility] Stop: 10/08/18 08:01 Medical Necessity - Tobacco Use Smoking Status: Current every day smoker Tobacco Use: Cigarettes Assessment/Plan All Active Problems Angioedema (Acute) 1. Acute respiratory failure, impending though no overt hypoxia, nor hypercapnea was documented, respiratory collapse may have be imminent without endotracheal intubation still on vent, mgmt per [facility] sedation with fentanyl and dexmedetomidine started on tube feeds today 2. Angioedema appears to be improving on methylprednisolone, diphenhydramine etiology unclear: ACEi being the most likely culprit, but clouding the picture was a recent pneumonia vaccination (likely either PCV-13 or PPSV-23, not both) 3. Reported alcohol abuse: alcohol level was negative on UDS UDS + for opiates and BZDs (however, performed AFTER he received fentanyl and midazolam) on thiamine and folate CIWA protocol ordered currently sedated with dexmedetomidine gtt 4. Hyperkalemia not documented as hemolyzed s/p Kayexalate monitor 5. DM2 metformin held continue SSI 6. VTE prophylaxis: LMWH Code Visit Inpatient E&M: 45541 Subs Hosp L3
[2018-10-07] MEDS: Enoxaparin 40 MG/0.4 ML Syringe SC (09:38)
--- NOTE | 2018-10-07 09:55 | PN_ITS ---
Patient Problems: Active and Suspected Problems Angioedema (Acute) Subjective: Remained on vent overnight. Vitals/I&O's: Vital Signs Temp Pulse Resp BP Pulse Ox 36.3 C L 55 L 14 117/79 97 10/07/18 08:00 10/07/18 09:00 10/07/18 09:00 10/07/18 09:00 10/07/18 09:00 Oxygen Delivery Method Mechanical Ventilator Weight: 77.7 kg Body Mass Index (BMI) 24.5 Intake and Output for Last 24 Hours 10/05/18 10/06/18 10/07/18 23:59 23:59 23:59 Intake Total 238.8 / 238.8 981.5 / 981.5 Output Total 550 / 550 475 / 475 Balance -311.2 / -311.2 506.5 / 506.5 General: - - intubated. sedated. afebrile. HEENT: Atraumatic, Normocephalic Oral: Moist Mucosa, No Gingival or Mucosal Lesions/ Ulcerations Neck: No Nodes, Thyroid Normal Size and Texture Lungs: Clear to auscultation, Normal air movement, No rhonchi, No wheeze Cardiovascular: Regular rate, Regular Rhythm, Normal S1, Normal S2, No murmurs Abdomen: Bowel Sounds Present, Soft, Non Tender, Non-Distended, No Hepato- splenomegaly Extremities: No edema, No Calf Tenderness Skin: No rashes, No breakdown Musculoskeletal: No Tenderness to Palpation of Joints or Extremities, No Muscle Wasting Neurological: Deep Tendon Reflexes 2+/4 and Symmetrical Laboratory Results 10/06/18 19:55: WBC 13.4 H, RBC 4.06 L, Hgb 13.0, Hct 37.2 L, MCV 91.6, MCH 32.0, MCHC 34.9, RDW 13.9, RDW Differential 46.0 H, Plt Count 291, MPV 9.1, Immature Gran % (Auto) 0.400, Neut % (Auto) 65.5, Lymph % (Auto) 24.9, [place] % (Auto) 7.6, Eos % (Auto) 1.3, Baso % (Auto) 0.3, Absolute Neuts (auto) 8.8 H, Absolute Lymphs (auto) 3.33, Total Counted Not Reportable 10/06/18 19:55: Sodium 134 L, Potassium 3.8, Chloride 101, Carbon Dioxide 24.0, Anion Gap 9, BUN 16, Creatinine 1.13, Estim Creat Clear Calc 72.30, Est GFR (MDRD) Af Amer 87, Est GFR (MDRD) Non-Af 72, BUN/Creatinine Ratio 14.2, Glucose 56 L, Calcium 9.9, Total Bilirubin 0.20, AST 44 H, ALT 45, Alkaline Phosphatase 74, Total Protein 8.0, Albumin 4.4, Globulin 3.6, Albumin/Globulin Ratio 1.2 10/06/18 19:55: Phosphorus 4.0, Magnesium 1.6 10/06/18 19:55: Total Creatine Kinase 902 H, Triglycerides 389 H 10/06/18 23:00: Ethyl Alcohol < 3.0 10/06/18 23:00: Urine Opiates Screen POSITIVE H, Urine Methadone Screen NEGATIVE, Ur Barbiturates Screen NEGATIVE, Ur Phencyclidine Scrn NEGATIVE, Ur Amphetamines Screen NEGATIVE, U Methamphetamin-MDMA NEGATIVE, U Benzodiazepines Scrn POSITIVE H, Urine Cocaine Screen NEGATIVE, U Cannabinoids Screen NEGATIVE, Ur Drug Screen Comment 10/06/18 23:30: POC Glucose 132 H 10/07/18 04:35: WBC 11.8 H, RBC 3.53 L, Hgb 10.7 L, Hct 32.3 L, MCV 91.5, MCH 30.3, MCHC 33.1, RDW 13.6, RDW Differential 44.3 H, Plt Count 255, MPV 9.5, Immature Gran % (Auto) 0.300, Neut % (Auto) 90.6 H, Lymph % (Auto) 7.5 L, [place] % (Auto) 1.4, Eos % (Auto) 0.1, Baso % (Auto) 0.1, Absolute Neuts (auto) 10.7 H, Absolute Lymphs (auto) 0.88, Total Counted Not Reportable 10/07/18 04:35: Sodium 133 L, Potassium 5.5 H, Chloride 103, Carbon Dioxide 23.0, Anion Gap 7, BUN 17, Creatinine 1.00, Estim Creat Clear Calc 87.19, Est GFR (MDRD) Af Amer 100, Est GFR (MDRD) Non-Af 83, BUN/Creatinine Ratio 17.0, Glucose 218 H, Calcium 8.2 L 10/07/18 05:21: POC Glucose 250 H Current Medications Acetaminophen (Tylenol) 650 mg PO Q6H PRN PRN PRN Reason: Non-cardiac pain (mod-severe) Albuterol Sulfate (Ventolin Aerosols) 2.5 mg INHALATION Q2H PRN PRN PRN Reason: dyspnea, wheezing Chlorhexidine Gluconate () 15 ml PO BID [facility] Last Admin: 10/06/18 22:40 Dose: 15 ml Dextrose (D50w Syringe) 0 gm IV X1 PRN; Protocol PRN Reason: Hypoglycemia Diphenhydramine HCl (Benadryl) 50 mg IV Q6H [facility] Last Admin: 10/07/18 05:31 Dose: 50 mg Enoxaparin Sodium (Lovenox) 40 mg SC DAILY@1000 [facility] Famotidine (Pepcid) 20 mg GT BID [facility] Folic Acid (Folic Acid) 1 mg PO DAILY@0800 [facility] Stop: 10/08/18 08:01 Glucagon () 1 mg IM .X1 PRN PRN Reason: Hypoglycemia Hydralazine HCl (Apresoline Iv) 10 mg IV Q4H PRN PRN PRN Reason: SBP > 160 Fentanyl () 100 mls @ 5 mls/hr IV .Q20H [facility] Folic Acid 1 mg/ Sodium (Chloride) 50.2 mls @ 200 mls/hr IV DAILY [facility] Stop: 10/07/18 10:16 Last Admin: 10/06/18 23:24 Dose: 200 mls/hr Thiamine HCl 100 mg/ Sodium (Chloride) 51 mls @ 200 mls/hr IV DAILY [facility] Stop: 10/07/18 10:16 Last Admin: 10/06/18 22:50 Dose: 200 mls/hr Dexmedetomidine HCl 400 mcg/ (Sodium Chloride) 100 mls @ 9.76 mls/hr CONT INF .[id number] [facility] Last Admin: 10/07/18 05:31 Dose: 9.76 mls/hr Sodium Chloride () 250 mls @ 15 mls/hr IV .[id number] PRN PRN Reason: SALINE FLUSH Enteral Nutritional Formula (Vital Af 1.2 Wily Liquid) 1,000 mls @ 65 mls/hr GT .[id number] [facility] Insulin Human Lispro (Humalog Kwikpen (Bkc)) 0 unit SC Q6 [facility]; Protocol Last Admin: 10/07/18 05:30 Dose: 3 u Lorazepam (Ativan) 2 mg PO Q2H PRN PRN; Protocol PRN Reason: CIWA score > 8 but <15 Lorazepam (Ativan) 2 mg IV Q2H PRN PRN; Protocol PRN Reason: CIWA score > 8 but <15 Lorazepam (Ativan) 2 mg PO UD PRN; Protocol PRN Reason: CIWA score >/=15. Lorazepam (Ativan) 2 mg IV UD PRN; Protocol PRN Reason: CIWA score >/=15. Methylprednisolone (Solu-Medrol) 40 mg IV Q8 [facility] Last Admin: 10/07/18 05:32 Dose: 40 mg Ondansetron HCl (Zofran) 4 mg IV Q8H PRN PRN PRN Reason: NAUSEA/VOMITING Sodium Chloride () 5 - 15 ml IV UD PRN PRN Reason: SALINE FLUSH Last Admin: 10/06/18 23:35 Dose: 15 ml Thiamine HCl (Vitamin B1) 200 mg PO DAILYCM [facility] Stop: 10/08/18 08:01 Medical Necessity - Tobacco Use Smoking Status: Current every day smoker Tobacco Use: Cigarettes Assessment/Plan All Active Problems Angioedema (Acute) 1. Acute respiratory failure, impending * though no overt hypoxia, nor hypercapnea was documented, respiratory collapse may have be imminent without endotracheal intubation * still on vent, mgmt per [facility] * sedation with fentanyl and dexmedetomidine * started on tube feeds today 2. Angioedema * appears to be improving * on methylprednisolone, diphenhydramine * etiology unclear: ACEi being the most likely culprit, but clouding the picture was a recent pneumonia vaccination (likely either PCV-13 or PPSV-23, not both) 3. Reported alcohol abuse: * alcohol level was negative on UDS * UDS + for opiates and BZDs (however, performed AFTER he received fentanyl and midazolam) * on thiamine and folate * CIWA protocol ordered * currently sedated with dexmedetomidine gtt 4. Hyperkalemia * not documented as hemolyzed * s/p Kayexalate * monitor 5. DM2 * metformin held * continue SSI 6. VTE prophylaxis: LMWH Code Visit Inpatient E&M: [id number] [facility] Hosp
[2018-10-07] MEDS: Vital AF 1.2 Cal Liquid 1,000 ML 65 ML GT (12:35)
[2018-10-07] MEDS: Famotidine 20 MG Tablet GT ×2 (12:35→21:28)
[2018-10-07 12:45] LABS: Bedside Glucose 224 mg/dL (70-110)
[2018-10-07] MEDS: fentaNYL drip 100 ML 5 MCG IV ×2 (12:51→23:09)
--- NOTE | 2018-10-07 14:57 | NURSING ---
Teaching of pt chronic medical conditions deferred until pt no longer sedated on vent
[2018-10-07 15:36] LABS: Allen Test POS; Base Excess -5 mmol/L (-2 to +2); Bicarbonate 19.7 mmol/L (22-26); Blood Gas Specimen Type ART; FI02 21; Mode A-C; O2 Delivery Device Vent; PEEP 5; PO2 79 mmHG (75-100); RR 14; SITE L Radial; SO2 96 % (95-99); Time Given 1529; Total Carbon Dioxide 21 mmol/L; Vt 500; pCO2 33.2 mmHg (35-45); pH 7.38 (7.35-7.45)
--- NOTE | 2018-10-07 17:37 | PCM.PN.BLA ---
Progress Note I was called to the emergency department for a stat airway. 52 year old white male began having a swollen sore throat this evening. He was found to have angioedema. A request was made for airway management by the emergency department physician PE: awake alert NAD No stridor. No stertor. No retractions Voice is muffled and gravelly. Soft palate with significant watery edema. The uvula was about 1.5 cm wide and 3 cm long. The posterior pharynx was visible. Neck is thin with easily palpable landmarks A: Angioedema P: The patient was intubated in the emergency department without complication using a [facility]-scope. The supraglottic structures were edematous, which I personally visualized on the [facility]-scope screen. He was easily intubated by Dr. Man. I stood by in case tracheotomy was needed and it was not.
[2018-10-07 18:01] LABS: Bedside Glucose 281 mg/dL (70-110)
--- NOTE | 2018-10-07 18:53 | NURSING ---
Pt's son, Ricardo, took pt's truck keys at this time. Pt awake and aware.
[2018-10-07] MEDS: 0.9% NaCl Peripheral Flush Adult/Peds IV (23:08)
[2018-10-07 23:21] LABS: Bedside Glucose 239 mg/dL (70-110)
[2018-10-08] VITALS (28 sets, daily range): BP systolic 114–156; BP diastolic 65–99; PULSE 48–97; RESP 14–26; TEMP 36.7–37.2; O2SAT 94–100
[2018-10-08 04:30] LABS: Absolute Lymphocyte Count 0.84 X10^3/ul (0.83-4.51); Absolute Neutrophil Count 10.8 X10^3/uL (2.0-7.7); Hematocrit 31.5 % (40-54); Hemoglobin 10.5 g/dl (13.0-16.5); Lymphocyte # 0.84 X10^3/ul (4.0); Lymphocyte % 6.8 % (19-41); Mean Corp Hgb Conc 33.3 g/gl (32-36); Mean Corpuscular Hgb 30.9 pg (27.0-32.0); Mean Corpuscular Volume 92.6 fL (80-94); Mean Platelet Vol. 9.3 fl (6.2-12.0); Monocyte# 0.82 X10^3/uL; Monocyte% 6.6 % (0-10); Neutrophil # 10.75 X10^3/uL (2.7-7.7); Neutrophil % 86.4 % (47-70); Platelet Count 246 K/mm3 (150-450); RBC Distribution Width CV 13.8 % (11.6-14.6); RBC Distribution Width SD 45.3 fl (35.1-43.9); White Blood Count 12.4 K/mm3 (4.4-11.0)
[2018-10-08 04:32] LABS: POSITIVE COUNT NO; POSITIVE DIFFERENTIAL NO; POSITIVE MORPHOLOGY NO
[2018-10-08 04:43] LABS: Anion Gap 8 (5-15); BUN 20 mg/dL (7-18); BUN/Creat Ratio 20.1 RATIO (10-20); Calcium,Total 8.3 mg/dL (8.5-10.1); Chloride 105 mmol/L (98-107); Creatinine, Serum 0.99 mg/dL (0.70-1.30); EST Glomerular Filtration Rate 83 mL/min (>60); Est Glom Filt Rate - Afr Amer 101 mL/min (>60); Estimated Creatinine Clearance 88.08 ml/min; Glucose 243 mg/dL (74-106); Potassium 4.6 mmol/L (3.5-5.1); Sodium Level 138 mmol/L (136-145)
[2018-10-08] MEDS: Insulin Lispro 100 UNIT/ML INSULN.PEN SC ×3 (05:19→21:20)
[2018-10-08] MEDS: DiphenhydrAMINE 50 MG/ML Syringe IV ×4 (05:19→23:11)
[2018-10-08] MEDS: 0.9% NaCl Peripheral Flush Adult/Peds IV ×3 (05:26→23:11)
--- NOTE | 2018-10-08 06:53 | NURSING ---
Pt extubated with RT at bedside. Pt tolerated well, on 2L NC, minimal secretions, cough and gag present, vocal chords intact. OG discontinued.
--- NOTE | 2018-10-08 07:00 | PCM.PN.INT ---
Subjective: Patient did well overnight. No acute issues were reported. Patient was quickly weaned to minimal vent settings and had a spontaneous breathing trial this morning for 1-1/2 hours. Patient was noted to have a leak and was extubated under my direct supervision. General: Alert, Cooperative, No apparent distress, - - Appears stated age. No tremor appreciated. HEENT: Atraumatic, PERRLA, EOMI, Normocephalic, - - No scleral icterus or injection noted. Oral: Moist Mucosa, No Gingival or Mucosal Lesions/ Ulcerations Neck: Supple, No JVD, No Nodes, Trachea Midline Lungs: Clear to auscultation, Normal air movement, No rhonchi, No wheeze, No rales, - - Symmetric expansion. No dullness to percussion. Cardiovascular: Regular rate, Regular Rhythm, Normal S1, Normal S2, No murmurs, No rub noted, No Gallop Abdomen: Bowel Sounds Present, Soft, Non Tender, Non-Distended Extremities: No clubbing, No cyanosis, No edema, Capillary Refill Less than 3 Seconds Skin: No rashes, No breakdown Musculoskeletal: No Tenderness to Palpation of Joints or Extremities Lymphatic: No Cervical, Supraclavicular, or Inguinal Adenopathy Neurological: Cranial nerves II-XII grossly intact, Neuro grossly intact, Motor Exam 5/5 strength throughout Psych/Mental Status: Normal Affect, Appropriate Vital Signs Temp Pulse Resp BP Pulse Ox 36.7 C 60 17 128/87 H 96 10/08/18 04:00 10/08/18 06:00 10/08/18 06:00 10/08/18 06:00 10/08/18 06:00 Oxygen Delivery Method Mechanical Ventilator Weight: 78 kg Body Mass Index (BMI) 24.5 Intake and Output for Last 24 Hours 10/06/18 10/07/18 10/08/18 23:59 23:59 23:59 Intake Total 238.8 / 238.8 2720.1 / 2720.1 666.3 / 666.3 Output Total 550 / 550 1650 / 1650 300 / 300 Balance -311.2 / -311.2 1070.1 / 1070.1 366.3 / 366.3 Labs (Last 48 Hours) 10/06/18 10/06/18 10/06/18 19:55 19:55 19:55 WBC 13.4 H RBC 4.06 L Hgb 13.0 Hct 37.2 L MCV 91.6 MCH 32.0 MCHC 34.9 RDW 13.9 RDW Differential 46.0 H Plt Count 291 MPV 9.1 Immature Gran % (Auto) 0.400 Neut % (Auto) 65.5 Lymph % (Auto) 24.9 [place] % (Auto) 7.6 Eos % (Auto) 1.3 Baso % (Auto) 0.3 Absolute Neuts (auto) 8.8 H Absolute Lymphs (auto) 3.33 Total Counted Not Reportable Specimen Type Sample Site pH Bicarbonate Actual POC Total CO2 Base Excess O2 Saturation O2 % ABG pCO2 ABG pO2 Melvin Test Respiration Rate O2 Delivery Device Minute Volume Vent Mode Tidal Volume POC PEEP Blood Gas Notified Whom Blood Gas Notified Time Sodium 134 L Potassium 3.8 Chloride 101 Carbon Dioxide 24.0 Anion Gap 9 BUN 16 Creatinine 1.13 Estim Creat Clear Calc 72.30 Est GFR (MDRD) Af Amer 87 Est GFR (MDRD) Non-Af 72 BUN/Creatinine Ratio 14.2 Glucose 56 L Calcium 9.9 Phosphorus 4.0 Magnesium 1.6 Total Bilirubin 0.20 AST 44 H ALT 45 Alkaline Phosphatase 74 Total Creatine Kinase Total Protein 8.0 Albumin 4.4 Globulin 3.6 Albumin/Globulin Ratio 1.2 Triglycerides Urine Opiates Screen Urine Methadone Screen Ur Barbiturates Screen Ur Phencyclidine Scrn Ur Amphetamines Screen U Methamphetamin-MDMA U Benzodiazepines Scrn Urine Cocaine Screen U Cannabinoids Screen Ur Drug Screen Comment Ethyl Alcohol POC Glucose 10/06/18 10/06/18 10/06/18 19:55 23:00 23:00 WBC RBC Hgb Hct MCV MCH MCHC RDW RDW Differential Plt Count MPV Immature Gran % (Auto) Neut % (Auto) Lymph % (Auto) [place] % (Auto) Eos % (Auto) Baso % (Auto) Absolute Neuts (auto) Absolute Lymphs (auto) Total Counted Specimen Type Sample Site pH Bicarbonate Actual POC Total CO2 Base Excess O2 Saturation O2 % ABG pCO2 ABG pO2 Melvin Test Respiration Rate O2 Delivery Device Minute Volume Vent Mode Tidal Volume POC PEEP Blood Gas Notified Whom Blood Gas Notified Time Sodium Potassium Chloride Carbon Dioxide Anion Gap BUN Creatinine Estim Creat Clear Calc Est GFR (MDRD) Af Amer Est GFR (MDRD) Non-Af BUN/Creatinine Ratio Glucose Calcium Phosphorus Magnesium Total Bilirubin AST ALT Alkaline Phosphatase Total Creatine Kinase 902 H Total Protein Albumin Globulin Albumin/Globulin Ratio Triglycerides 389 H Urine Opiates Screen POSITIVE H Urine Methadone Screen NEGATIVE Ur Barbiturates Screen NEGATIVE Ur Phencyclidine Scrn NEGATIVE Ur Amphetamines Screen NEGATIVE U Methamphetamin-MDMA NEGATIVE U Benzodiazepines Scrn POSITIVE H Urine Cocaine Screen NEGATIVE U Cannabinoids Screen NEGATIVE Ur Drug Screen Comment Ethyl Alcohol < 3.0 POC Glucose 10/06/18 10/07/18 10/07/18 23:30 04:35 04:35 WBC 11.8 H RBC 3.53 L Hgb 10.7 L Hct 32.3 L MCV 91.5 MCH 30.3 MCHC 33.1 RDW 13.6 RDW Differential 44.3 H Plt Count 255 MPV 9.5 Immature Gran % (Auto) 0.300 Neut % (Auto) 90.6 H Lymph % (Auto) 7.5 L [place] % (Auto) 1.4 Eos % (Auto) 0.1 Baso % (Auto) 0.1 Absolute Neuts (auto) 10.7 H Absolute Lymphs (auto) 0.88 Total Counted Not Reportable Specimen Type Sample Site pH Bicarbonate Actual POC Total CO2 Base Excess O2 Saturation O2 % ABG pCO2 ABG pO2 Melvin Test Respiration Rate O2 Delivery Device Minute Volume Vent Mode Tidal Volume POC PEEP Blood Gas Notified Whom Blood Gas Notified Time Sodium 133 L Potassium 5.5 H Chloride 103 Carbon Dioxide 23.0 Anion Gap 7 BUN 17 Creatinine 1.00 Estim Creat Clear Calc 87.19 Est GFR (MDRD) Af Amer 100 Est GFR (MDRD) Non-Af 83 BUN/Creatinine Ratio 17.0 Glucose 218 H Calcium 8.2 L Phosphorus Magnesium Total Bilirubin AST ALT Alkaline Phosphatase Total Creatine Kinase Total Protein Albumin Globulin Albumin/Globulin Ratio Triglycerides Urine Opiates Screen Urine Methadone Screen Ur Barbiturates Screen Ur Phencyclidine Scrn Ur Amphetamines Screen U Methamphetamin-MDMA U Benzodiazepines Scrn Urine Cocaine Screen U Cannabinoids Screen Ur Drug Screen Comment Ethyl Alcohol POC Glucose 132 H 10/07/18 10/07/18 10/07/18 05:21 12:33 15:30 WBC RBC Hgb Hct MCV MCH MCHC RDW RDW Differential Plt Count MPV Immature Gran % (Auto) Neut % (Auto) Lymph % (Auto) [place] % (Auto) Eos % (Auto) Baso % (Auto) Absolute Neuts (auto) Absolute Lymphs (auto) Total Counted Specimen Type ART Sample Site L Radial pH 7.38 Bicarbonate Actual 19.7 L POC Total CO2 21 Base Excess -5 L O2 Saturation 96 O2 % 21 ABG pCO2 33.2 L ABG pO2 79 Melvin Test POS Respiration Rate 14 O2 Delivery Device Vent Minute Volume 7.00 Vent Mode A-C Tidal Volume 500 POC PEEP 5 Blood Gas Notified Whom ICU MD Blood Gas Notified Time 1529 Sodium Potassium Chloride Carbon Dioxide Anion Gap BUN Creatinine Estim Creat Clear Calc Est GFR (MDRD) Af Amer Est GFR (MDRD) Non-Af BUN/Creatinine Ratio Glucose Calcium Phosphorus Magnesium Total Bilirubin AST ALT Alkaline Phosphatase Total Creatine Kinase Total Protein Albumin Globulin Albumin/Globulin Ratio Triglycerides Urine Opiates Screen Urine Methadone Screen Ur Barbiturates Screen Ur Phencyclidine Scrn Ur Amphetamines Screen U Methamphetamin-MDMA U Benzodiazepines Scrn Urine Cocaine Screen U Cannabinoids Screen Ur Drug Screen Comment Ethyl Alcohol POC Glucose 250 H 224 H 10/07/18 10/07/18 10/08/18 17:41 23:01 04:25 WBC 12.4 H RBC 3.40 L Hgb 10.5 L Hct 31.5 L MCV 92.6 MCH 30.9 MCHC 33.3 RDW 13.8 RDW Differential 45.3 H Plt Count 246 MPV 9.3 Immature Gran % (Auto) 0.200 Neut % (Auto) 86.4 H Lymph % (Auto) 6.8 L [place] % (Auto) 6.6 Eos % (Auto) 0.0 Baso % (Auto) 0.0 Absolute Neuts (auto) 10.8 H Absolute Lymphs (auto) 0.84 Total Counted Not Reportable Specimen Type Sample Site pH Bicarbonate Actual POC Total CO2 Base Excess O2 Saturation O2 % ABG pCO2 ABG pO2 Melvin Test Respiration Rate O2 Delivery Device Minute Volume Vent Mode Tidal Volume POC PEEP Blood Gas Notified Whom Blood Gas Notified Time Sodium Potassium Chloride Carbon Dioxide Anion Gap BUN Creatinine Estim Creat Clear Calc Est GFR (MDRD) Af Amer Est GFR (MDRD) Non-Af BUN/Creatinine Ratio Glucose Calcium Phosphorus Magnesium Total Bilirubin AST ALT Alkaline Phosphatase Total Creatine Kinase Total Protein Albumin Globulin Albumin/Globulin Ratio Triglycerides Urine Opiates Screen Urine Methadone Screen Ur Barbiturates Screen Ur Phencyclidine Scrn Ur Amphetamines Screen U Methamphetamin-MDMA U Benzodiazepines Scrn Urine Cocaine Screen U Cannabinoids Screen Ur Drug Screen Comment Ethyl Alcohol POC Glucose 281 H 239 H 10/08/18 04:25 WBC RBC Hgb Hct MCV MCH MCHC RDW RDW Differential Plt Count MPV Immature Gran % (Auto) Neut % (Auto) Lymph % (Auto) [place] % (Auto) Eos % (Auto) Baso % (Auto) Absolute Neuts (auto) Absolute Lymphs (auto) Total Counted Specimen Type Sample Site pH Bicarbonate Actual POC Total CO2 Base Excess O2 Saturation O2 % ABG pCO2 ABG pO2 Melvin Test Respiration Rate O2 Delivery Device Minute Volume Vent Mode Tidal Volume POC PEEP Blood Gas Notified Whom Blood Gas Notified Time Sodium 138 Potassium 4.6 Chloride 105 Carbon Dioxide 25.0 Anion Gap 8 BUN 20 H Creatinine 0.99 Estim Creat Clear Calc 88.08 Est GFR (MDRD) Af Amer 101 Est GFR (MDRD) Non-Af 83 BUN/Creatinine Ratio 20.1 H Glucose 243 H Calcium 8.3 L Phosphorus Magnesium Total Bilirubin AST ALT Alkaline Phosphatase Total Creatine Kinase Total Protein Albumin Globulin Albumin/Globulin Ratio Triglycerides Urine Opiates Screen Urine Methadone Screen Ur Barbiturates Screen Ur Phencyclidine Scrn Ur Amphetamines Screen U Methamphetamin-MDMA U Benzodiazepines Scrn Urine Cocaine Screen U Cannabinoids Screen Ur Drug Screen Comment Ethyl Alcohol POC Glucose Clinical Impression(s) from Imaging Studies Chest X-Ray 10/07/18 05:55 IMPRESSION: No interval change. Electronically Signed: Cruz Arellano DO at 8:21 EDT Tel [phone], Service support , Medical Necessity - Tobacco Use Smoking Status: Current every day smoker Tobacco Use: Cigarettes Assessment/Plan All Active Problems Angioedema (Acute) RECOMMENDATIONS: 1. Okay to discontinue Precedex 2. Continue thiamine and folate repletion to complete 3 days 3. Continue as needed bronchodilators. 4. Continue Benadryl, Pepcid and steroids as ordered for an additional 48 hours 5. Bedside swallow evaluation 6. Increased activity as tolerated IMPRESSIONS: 1. Acute respiratory failure The patient was intubated in the emergency department over concerns for airway patency in the setting of acute onset angioedema. Per documentation, the vast majority of the patient's airway edema was in the posterior oropharynx. The exact precipitating etiology for the patient's angioedema is still a bit unclear. Patient appears to observe responded to therapy appropriately. Leak was noted this morning and patient was successfully extubated. Minimal vent settings. 2. History of alcohol and tobacco dependency It is reasonable to continue as needed bronchodilators. Patient does not appear to be going through significant alcohol withdrawal at this time. Continue thiamine and folate repletion. Outpatient pulmonary function test for evaluation of COPD would be appropriate. 3. Hyperkalemia Resolved. 4. Hypertension/hyperlipidemia/GERD/diabetes mellitus Complicates care, management, recovery and prognosis. There is no current need for antihypertensives. Possibly discontinue any sliding scale insulin once tolerating p.o. TIME: 31 minutes of critical care time, independent of procedures, was spent addressing the patient's acute respiratory failure, suspected angioedema, history of alcohol and tobacco dependency, hyperkalemia, review of all data and collaboration with the care team. (5:45 AM to 6:45 AM) Code Visit [id number]: [id number] Critical care first hour
--- NOTE | 2018-10-08 07:04 | PN_ITS ---
Subjective: Patient did well overnight. No acute issues were reported. Patient was quickly weaned to minimal vent settings and had a spontaneous breathing trial this morning for 1-1/2 hours. Patient was noted to have a leak and was extubated under my direct supervision. General: Alert, Cooperative, No apparent distress, - - Appears stated age. No tremor appreciated. HEENT: Atraumatic, PERRLA, EOMI, Normocephalic, - - No scleral icterus or injection noted. Oral: Moist Mucosa, No Gingival or Mucosal Lesions/ Ulcerations Neck: Supple, No JVD, No Nodes, Trachea Midline Lungs: Clear to auscultation, Normal air movement, No rhonchi, No wheeze, No rales, - - Symmetric expansion. No dullness to percussion. Cardiovascular: Regular rate, Regular Rhythm, Normal S1, Normal S2, No murmurs, No rub noted, No Gallop Abdomen: Bowel Sounds Present, Soft, Non Tender, Non-Distended Extremities: No clubbing, No cyanosis, No edema, Capillary Refill Less than 3 Se conds Skin: No rashes, No breakdown Musculoskeletal: No Tenderness to Palpation of Joints or Extremities Lymphatic: No Cervical, Supraclavicular, or Inguinal Adenopathy Neurological: Cranial nerves II-XII grossly intact, Neuro grossly intact, Motor Exam 5/5 strength throughout Psych/Mental Status: Normal Affect, Appropriate Vital Signs Temp Pulse Resp BP Pulse Ox 36.7 C 60 17 128/87 H 96 10/08/18 04:00 10/08/18 06:00 10/08/18 06:00 10/08/18 06:00 10/08/18 06:00 Oxygen Delivery Method Mechanical Ventilator Weight: 78 kg Body Mass Index (BMI) 24.5 Intake and Output for Last 24 Hours 10/06/18 10/07/18 10/08/18 23:59 23:59 23:59 Intake Total 238.8 / 238.8 2720.1 / 2720.1 666.3 / 666.3 Output Total 550 / 550 1650 / 1650 300 / 300 Balance -311.2 / -311.2 1070.1 / 1070.1 366.3 / 366.3 Labs (Last 48 Hours) 10/06/18 10/06/18 10/06/18 19:55 19:55 19:55 WBC 13.4 H RBC 4.06 L Hgb 13.0 Hct 37.2 L MCV 91.6 MCH 32.0 MCHC 34.9 RDW 13.9 RDW Differential 46.0 H Plt Count 291 MPV 9.1 Immature Gran % (Auto) 0.400 Neut % (Auto) 65.5 Lymph % (Auto) 24.9 [place] % (Auto) 7.6 Eos % (Auto) 1.3 Baso % (Auto) 0.3 Absolute Neuts (auto) 8.8 H Absolute Lymphs (auto) 3.33 Total Counted Not Reportable Specimen Type Sample Site pH Bicarbonate Actual POC Total CO2 Base Excess O2 Saturation O2 % ABG pCO2 ABG pO2 Melvin Test Respiration Rate O2 Delivery Device Minute Volume Vent Mode Tidal Volume POC PEEP Blood Gas Notified Whom Blood Gas Notified Time Sodium 134 L Potassium 3.8 Chloride 101 Carbon Dioxide 24.0 Anion Gap 9 BUN 16 Creatinine 1.13 Estim Creat Clear Calc 72.30 Est GFR (MDRD) Af Amer 87 Est GFR (MDRD) Non-Af 72 BUN/Creatinine Ratio 14.2 Glucose 56 L Calcium 9.9 Phosphorus 4.0 Magnesium 1.6 Total Bilirubin 0.20 AST 44 H ALT 45 Alkaline Phosphatase 74 Total Creatine Kinase Total Protein 8.0 Albumin 4.4 Globulin 3.6 Albumin/Globulin Ratio 1.2 Triglycerides Urine Opiates Screen Urine Methadone Screen Ur Barbiturates Screen Ur Phencyclidine Scrn Ur Amphetamines Screen U Methamphetamin-MDMA U Benzodiazepines Scrn Urine Cocaine Screen U Cannabinoids Screen Ur Drug Screen Comment Ethyl Alcohol POC Glucose 10/06/18 10/06/18 10/06/18 19:55 23:00 23:00 WBC RBC Hgb Hct MCV MCH MCHC RDW RDW Differential Plt Count MPV Immature Gran % (Auto) Neut % (Auto) Lymph % (Auto) [place] % (Auto) Eos % (Auto) Baso % (Auto) Absolute Neuts (auto) Absolute Lymphs (auto) Total Counted Specimen Type Sample Site pH Bicarbonate Actual POC Total CO2 Base Excess O2 Saturation O2 % ABG pCO2 ABG pO2 Melvin Test Respiration Rate O2 Delivery Device Minute Volume Vent Mode Tidal Volume POC PEEP Blood Gas Notified Whom Blood Gas Notified Time Sodium Potassium Chloride Carbon Dioxide Anion Gap BUN Creatinine Estim Creat Clear Calc Est GFR (MDRD) Af Amer Est GFR (MDRD) Non-Af BUN/Creatinine Ratio Glucose Calcium Phosphorus Magnesium Total Bilirubin AST ALT Alkaline Phosphatase Total Creatine Kinase 902 H Total Protein Albumin Globulin Albumin/Globulin Ratio Triglycerides 389 H Urine Opiates Screen POSITIVE H Urine Methadone Screen NEGATIVE Ur Barbiturates Screen NEGATIVE Ur Phencyclidine Scrn NEGATIVE Ur Amphetamines Screen NEGATIVE U Methamphetamin-MDMA NEGATIVE U Benzodiazepines Scrn POSITIVE H Urine Cocaine Screen NEGATIVE U Cannabinoids Screen NEGATIVE Ur Drug Screen Comment Ethyl Alcohol < 3.0 POC Glucose 10/06/18 10/07/18 10/07/18 23:30 04:35 04:35 WBC 11.8 H RBC 3.53 L Hgb 10.7 L Hct 32.3 L MCV 91.5 MCH 30.3 MCHC 33.1 RDW 13.6 RDW Differential 44.3 H Plt Count 255 MPV 9.5 Immature Gran % (Auto) 0.300 Neut % (Auto) 90.6 H Lymph % (Auto) 7.5 L [place] % (Auto) 1.4 Eos % (Auto) 0.1 Baso % (Auto) 0.1 Absolute Neuts (auto) 10.7 H Absolute Lymphs (auto) 0.88 Total Counted Not Reportable Specimen Type Sample Site pH Bicarbonate Actual POC Total CO2 Base Excess O2 Saturation O2 % ABG pCO2 ABG pO2 Melvin Test Respiration Rate O2 Delivery Device Minute Volume Vent Mode Tidal Volume POC PEEP Blood Gas Notified Whom Blood Gas Notified Time Sodium 133 L Potassium 5.5 H Chloride 103 Carbon Dioxide 23.0 Anion Gap 7 BUN 17 Creatinine 1.00 Estim Creat Clear Calc 87.19 Est GFR (MDRD) Af Amer 100 Est GFR (MDRD) Non-Af 83 BUN/Creatinine Ratio 17.0 Glucose 218 H Calcium 8.2 L Phosphorus Magnesium Total Bilirubin AST ALT Alkaline Phosphatase Total Creatine Kinase Total Protein Albumin Globulin Albumin/Globulin Ratio Triglycerides Urine Opiates Screen Urine Methadone Screen Ur Barbiturates Screen Ur Phencyclidine Scrn Ur Amphetamines Screen U Methamphetamin-MDMA U Benzodiazepines Scrn Urine Cocaine Screen U Cannabinoids Screen Ur Drug Screen Comment Ethyl Alcohol POC Glucose 132 H 10/07/18 10/07/18 10/07/18 05:21 12:33 15:30 WBC RBC Hgb Hct MCV MCH MCHC RDW RDW Differential Plt Count MPV Immature Gran % (Auto) Neut % (Auto) Lymph % (Auto) [place] % (Auto) Eos % (Auto) Baso % (Auto) Absolute Neuts (auto) Absolute Lymphs (auto) Total Counted Specimen Type ART Sample Site L Radial pH 7.38 Bicarbonate Actual 19.7 L POC Total CO2 21 Base Excess -5 L O2 Saturation 96 O2 % 21 ABG pCO2 33.2 L ABG pO2 79 Melvin Test POS Respiration Rate 14 O2 Delivery Device Vent Minute Volume 7.00 Vent Mode A-C Tidal Volume 500 POC PEEP 5 Blood Gas Notified Whom ICU Blood Gas Notified Time 1529 Sodium Potassium Chloride Carbon Dioxide Anion Gap BUN Creatinine Estim Creat Clear Calc Est GFR (MDRD) Af Amer Est GFR (MDRD) Non-Af BUN/Creatinine Ratio Glucose Calcium Phosphorus Magnesium Total Bilirubin AST ALT Alkaline Phosphatase Total Creatine Kinase Total Protein Albumin Globulin Albumin/Globulin Ratio Triglycerides Urine Opiates Screen Urine Methadone Screen Ur Barbiturates Screen Ur Phencyclidine Scrn Ur Amphetamines Screen U Methamphetamin-MDMA U Benzodiazepines Scrn Urine Cocaine Screen U Cannabinoids Screen Ur Drug Screen Comment Ethyl Alcohol POC Glucose 250 H 224 H 10/07/18 10/07/18 10/08/18 17:41 23:01 04:25 WBC 12.4 H RBC 3.40 L Hgb 10.5 L Hct 31.5 L MCV 92.6 MCH 30.9 MCHC 33.3 RDW 13.8 RDW Differential 45.3 H Plt Count 246 MPV 9.3 Immature Gran % (Auto) 0.200 Neut % (Auto) 86.4 H Lymph % (Auto) 6.8 L [place] % (Auto) 6.6 Eos % (Auto) 0.0 Baso % (Auto) 0.0 Absolute Neuts (auto) 10.8 H Absolute Lymphs (auto) 0.84 Total Counted Not Reportable Specimen Type Sample Site pH Bicarbonate Actual POC Total CO2 Base Excess O2 Saturation O2 % ABG pCO2 ABG pO2 Melvin Test Respiration Rate O2 Delivery Device Minute Volume Vent Mode Tidal Volume POC PEEP Blood Gas Notified Whom Blood Gas Notified Time Sodium Potassium Chloride Carbon Dioxide Anion Gap BUN Creatinine Estim Creat Clear Calc Est GFR (MDRD) Af Amer Est GFR (MDRD) Non-Af BUN/Creatinine Ratio Glucose Calcium Phosphorus Magnesium Total Bilirubin AST ALT Alkaline Phosphatase Total Creatine Kinase Total Protein Albumin Globulin Albumin/Globulin Ratio Triglycerides Urine Opiates Screen Urine Methadone Screen Ur Barbiturates Screen Ur Phencyclidine Scrn Ur Amphetamines Screen U Methamphetamin-MDMA U Benzodiazepines Scrn Urine Cocaine Screen U Cannabinoids Screen Ur Drug Screen Comment Ethyl Alcohol POC Glucose 281 H 239 H 10/08/18 04:25 WBC RBC Hgb Hct MCV MCH MCHC RDW RDW Differential Plt Count MPV Immature Gran % (Auto) Neut % (Auto) Lymph % (Auto) [place] % (Auto) Eos % (Auto) Baso % (Auto) Absolute Neuts (auto) Absolute Lymphs (auto) Total Counted Specimen Type Sample Site pH Bicarbonate Actual POC Total CO2 Base Excess O2 Saturation O2 % ABG pCO2 ABG pO2 Melvin Test Respiration Rate O2 Delivery Device Minute Volume Vent Mode Tidal Volume POC PEEP Blood Gas Notified Whom Blood Gas Notified Time Sodium 138 Potassium 4.6 Chloride 105 Carbon Dioxide 25.0 Anion Gap 8 BUN 20 H Creatinine 0.99 Estim Creat Clear Calc 88.08 Est GFR (MDRD) Af Amer 101 Est GFR (MDRD) Non-Af 83 BUN/Creatinine Ratio 20.1 H Glucose 243 H Calcium 8.3 L Phosphorus Magnesium Total Bilirubin AST ALT Alkaline Phosphatase Total Creatine Kinase Total Protein Albumin Globulin Albumin/Globulin Ratio Triglycerides Urine Opiates Screen Urine Methadone Screen Ur Barbiturates Screen Ur Phencyclidine Scrn Ur Amphetamines Screen U Methamphetamin-MDMA U Benzodiazepines Scrn Urine Cocaine Screen U Cannabinoids Screen Ur Drug Screen Comment Ethyl Alcohol POC Glucose Clinical Impression(s) from Imaging Studies Chest X-Ray 10/07/18 05:55 IMPRESSION: No interval change. Electronically Signed: Cruz Arellano DO at 8:21 EDT Tel [phone], Service support , Medical Necessity - Tobacco Use Smoking Status: Current every day smoker Tobacco Use: Cigarettes Assessment/Plan All Active Problems Angioedema (Acute) RECOMMENDATIONS: 1. Okay to discontinue Precedex 2. Continue thiamine and folate repletion to complete 3 days 3. Continue as needed bronchodilators. 4. Continue Benadryl, Pepcid and steroids as ordered for an additional 48 hours 5. Bedside swallow evaluation 6. Increased activity as tolerated IMPRESSIONS: 1. Acute respiratory failure The patient was intubated in the emergency department over concerns for airway patency in the setting of acute onset angioedema. Per documentation, the vast majority of the patient's airway edema was in the posterior oropharynx. The exact precipitating etiology for the patient's angioedema is still a bit unclear. Patient appears to observe responded to therapy appropriately. Leak was noted this morning and patient was successfully extubated. Minimal vent settings. 2. History of alcohol and tobacco dependency It is reasonable to continue as needed bronchodilators. Patient does not appear to be going through significant alcohol withdrawal at this time. Continue thiamine and folate repletion. Outpatient pulmonary function test for evaluation of COPD would be appropriate. 3. Hyperkalemia Resolved. 4. Hypertension/hyperlipidemia/GERD/diabetes mellitus Complicates care, management, recovery and prognosis. There is no current need for antihypertensives. Possibly discontinue any sliding scale insulin once tolerating p.o. TIME: 31 minutes of critical care time, independent of procedures, was spent addressing the patient's acute respiratory failure, suspected angioedema, history of alcohol and tobacco dependency, hyperkalemia, review of all data and collaboration with the care team. (5:45 AM to 6:45 AM) Code Visit [id number]: [id number] Critical care first hour
--- NOTE | 2018-10-08 09:27 | CASEMGMT ---
FIDELIA CM Assessment Presentation: Angioedema. Ventilatory support for airway management. Extubated 10/08/18
--- NOTE | 2018-10-08 09:32 | CASEMGMT ---
FIDELIA CM Note: Presentation: ANGIOEDEMA. Ventilatory support for airway management. Extubated 10/08/18. Intro role of CM to patient in ICU. Pt is awake, alert and able to participate in assessment. [place] ear. Pt states he is independent, plans to return home and denies any dc needs at this time. PCP: Dr. Renee Specialists: Dr. De Paz [facility] Insurance: [employer] [facility] Prescription Benefit: yes, pt states no difficulty in obtaining prescriptions LNOK: sonRicardo Living Arrangements: Lives independently. Independent in ADL's. Denies requiring any assistance @ home. Transportation: drives DME: none. HHC: none SW Consult: Reported daily ETOH use. BRITTANY Raphael updated. Patient DC goals: Home DC PLAN: Home Stephanie LOAIZA RN ACM
--- NOTE | 2018-10-08 11:42 | CASEMGMT ---
Referral received for ETOH use. SW met with patient, introduced self as well as role at [facility]. SW asked patient about his alcohol use. He said sometimes he doesn't drink for days and sometimes he does. He said he has a couple of drinks when he does drink. Patient is not interested in any resources. He does not feel resources are necessary. Isabelle RICKETTS MSW
--- NOTE | 2018-10-08 11:51 | PCM.PN.HOSP ---
Patient Problems: Active and Suspected Problems Angioedema (Acute) Subjective: Extubated today. No shortness of breath. Vitals/I&O's: Vital Signs Temp Pulse Resp BP Pulse Ox 37.0 C 57 L 18 115/65 97 10/08/18 10:00 10/08/18 10:00 10/08/18 10:00 10/08/18 10:00 10/08/18 10:00 Oxygen Flow Rate (L/min) 1 Oxygen Delivery Method Nasal Cannula Weight: 78 kg Body Mass Index (BMI) 24.5 Intake and Output for Last 24 Hours 10/06/18 10/07/18 10/08/18 23:59 23:59 23:59 Intake Total 238.8 / 238.8 2720.1 / 2720.1 666.3 / 666.3 Output Total 550 / 550 1650 / 1650 300 / 300 Balance -311.2 / -311.2 1070.1 / 1070.1 366.3 / 366.3 General: Alert, No apparent distress HEENT: Atraumatic, Normocephalic Oral: Moist Mucosa, No Gingival or Mucosal Lesions/ Ulcerations Neck: No Nodes, Thyroid Normal Size and Texture Lungs: Clear to auscultation, Normal air movement, No rhonchi, No wheeze Cardiovascular: Regular rate, Regular Rhythm, Normal S1, Normal S2, No murmurs Abdomen: Bowel Sounds Present, Soft, Non Tender, Non-Distended Extremities: No edema, No Calf Tenderness Skin: No rashes, No breakdown Psych/Mental Status: Normal Affect, Appropriate Laboratory Results 10/07/18 12:33: POC Glucose 224 H 10/07/18 15:30: Specimen Type ART, Sample Site L Radial, pH 7.38, Bicarbonate Actual 19.7 L, POC Total CO2 21, Base Excess -5 L, O2 Saturation 96, O2 % 21, ABG pCO2 33.2 L, ABG pO2 79, Melvin Test POS, Respiration Rate 14, O2 Delivery Device Vent, Minute Volume 7.00, Vent Mode A-C, Tidal Volume 500, POC PEEP 5, Blood Gas Notified Whom ICU , Blood Gas Notified Time 1521 10/07/18 17:41: POC Glucose 281 H 10/07/18 23:01: POC Glucose 239 H 10/08/18 04:25: WBC 12.4 H, RBC 3.40 L, Hgb 10.5 L, Hct 31.5 L, MCV 92.6, MCH 30.9, MCHC 33.3, RDW 13.8, RDW Differential 45.3 H, Plt Count 246, MPV 9.3, Immature Gran % (Auto) 0.200, Neut % (Auto) 86.4 H, Lymph % (Auto) 6.8 L, [place] % (Auto) 6.6, Eos % (Auto) 0.0, Baso % (Auto) 0.0, Absolute Neuts (auto) 10.8 H, Absolute Lymphs (auto) 0.84, Total Counted Not Reportable 10/08/18 04:25: Sodium 138, Potassium 4.6, Chloride 105, Carbon Dioxide 25.0, Anion Gap 8, BUN 20 H, Creatinine 0.99, Estim Creat Clear Calc 88.08, Est GFR (MDRD) Af Amer 101, Est GFR (MDRD) Non-Af 83, BUN/Creatinine Ratio 20.1 H, Glucose 243 H, Calcium 8.3 L Current Medications Acetaminophen (Tylenol) 650 mg PO Q6H PRN PRN PRN Reason: Non-cardiac pain (mod-severe) Albuterol Sulfate (Ventolin Aerosols) 2.5 mg INHALATION Q2H PRN PRN PRN Reason: dyspnea, wheezing Chlorhexidine Gluconate () 15 ml PO BID [facility] Last Admin: 10/08/18 08:40 Dose: Not Given Dextrose (D50w Syringe) 0 gm IV X1 PRN; Protocol PRN Reason: Hypoglycemia Diphenhydramine HCl (Benadryl) 50 mg IV Q6H [facility] Last Admin: 10/08/18 05:19 Dose: 50 mg Enoxaparin Sodium (Lovenox) 40 mg SC DAILY@1000 [facility] Last Admin: 10/07/18 09:38 Dose: 40 mg Famotidine (Pepcid) 20 mg GT BID [facility] Last Admin: 10/07/18 21:28 Dose: 20 mg Glucagon () 1 mg IM .X1 PRN PRN Reason: Hypoglycemia Hydralazine HCl (Apresoline Iv) 10 mg IV Q4H PRN PRN PRN Reason: SBP > 160 Fentanyl () 100 mls @ 5 mls/hr IV .Q20H [facility] Last Admin: 10/07/18 23:09 Dose: 5 mls/hr Dexmedetomidine HCl 400 mcg/ (Sodium Chloride) 100 mls @ 9.76 mls/hr CONT INF .[id number] [facility] Last Admin: 10/08/18 03:28 Dose: Not Given Sodium Chloride () 250 mls @ 15 mls/hr IV .[id number] PRN PRN Reason: SALINE FLUSH Enteral Nutritional Formula (Vital Af 1.2 Wily Liquid) 1,000 mls @ 65 mls/hr GT .[id number] [facility] Last Admin: 10/08/18 01:50 Dose: Not Given Insulin Human Lispro (Humalog Kwikpen (Bkc)) 0 unit SC Q6 [facility]; Protocol Last Admin: 10/08/18 05:19 Dose: 3 u Lorazepam (Ativan) 2 mg PO Q2H PRN PRN; Protocol PRN Reason: CIWA score > 8 but <15 Lorazepam (Ativan) 2 mg IV Q2H PRN PRN; Protocol PRN Reason: CIWA score > 8 but <15 Lorazepam (Ativan) 2 mg PO UD PRN; Protocol PRN Reason: CIWA score >/=15. Lorazepam (Ativan) 2 mg IV UD PRN; Protocol PRN Reason: CIWA score >/=15. Methylprednisolone (Solu-Medrol) 40 mg IV Q8 [facility] Last Admin: 10/08/18 05:19 Dose: 40 mg Ondansetron HCl (Zofran) 4 mg IV Q8H PRN PRN PRN Reason: NAUSEA/VOMITING Sodium Chloride () 5 - 15 ml IV UD PRN PRN Reason: SALINE FLUSH Last Admin: 10/08/18 05:26 Dose: 10 ml Medical Necessity - Tobacco Use Smoking Status: Current every day smoker Tobacco Use: Cigarettes Assessment/Plan All Active Problems Angioedema (Acute) 1. Acute respiratory failure, impending improved. extubated today. though no overt hypoxia, nor hypercapnea was documented, respiratory collapse may have be imminent without endotracheal intubation 2. Angioedema appears to be improving on methylprednisolone, diphenhydramine etiology unclear: ACEi being the most likely culprit, but clouding the picture was a recent pneumonia vaccination (likely either PCV-13 or PPSV-23, not both) 3. Reported alcohol abuse: alcohol level was negative on UDS UDS + for opiates and BZDs (however, performed AFTER he received fentanyl and midazolam) on thiamine and folate CIWA protocol ordered no clinical evidence of EtOH withdrawal at this time. 4. Hyperkalemia resolved not documented as hemolyzed s/p Kayexalate monitor 5. DM2 metformin held continue SSI 6. VTE prophylaxis: LMWH Code Visit Inpatient E&M: 68775 Subs Hosp L2
--- NOTE | 2018-10-08 11:54 | PN_ITS ---
Patient Problems: Active and Suspected Problems Angioedema (Acute) Subjective: Extubated today. No shortness of breath. Vitals/I&O's: Vital Signs Temp Pulse Resp BP Pulse Ox 37.0 C 57 L 18 115/65 97 10/08/18 10:00 10/08/18 10:00 10/08/18 10:00 10/08/18 10:00 10/08/18 10:00 Oxygen Flow Rate (L/min) 1 Oxygen Delivery Method Nasal Cannula Weight: 78 kg Body Mass Index (BMI) 24.5 Intake and Output for Last 24 Hours 10/06/18 10/07/18 10/08/18 23:59 23:59 23:59 Intake Total 238.8 / 238.8 2720.1 / 2720.1 666.3 / 666.3 Output Total 550 / 550 1650 / 1650 300 / 300 Balance -311.2 / -311.2 1070.1 / 1070.1 366.3 / 366.3 General: Alert, No apparent distress HEENT: Atraumatic, Normocephalic Oral: Moist Mucosa, No Gingival or Mucosal Lesions/ Ulcerations Neck: No Nodes, Thyroid Normal Size and Texture Lungs: Clear to auscultation, Normal air movement, No rhonchi, No wheeze Cardiovascular: Regular rate, Regular Rhythm, Normal S1, Normal S2, No murmurs Abdomen: Bowel Sounds Present, Soft, Non Tender, Non-Distended Extremities: No edema, No Calf Tenderness Skin: No rashes, No breakdown Psych/Mental Status: Normal Affect, Appropriate Laboratory Results 10/07/18 12:33: POC Glucose 224 H 10/07/18 15:30: Specimen Type ART, Sample Site L Radial, pH 7.38, Bicarbonate Actual 19.7 L, POC Total CO2 21, Base Excess -5 L, O2 Saturation 96, O2 % 21, ABG pCO2 33.2 L, ABG pO2 79, Melvin Test POS, Respiration Rate 14, O2 Delivery Device Vent, Minute Volume 7.00, Vent Mode A-C, Tidal Volume 500, POC PEEP 5, Blood Gas Notified Whom ICU , Blood Gas Notified Time 152 10/07/18 17:41: POC Glucose 281 H 10/07/18 23:01: POC Glucose 239 H 10/08/18 04:25: WBC 12.4 H, RBC 3.40 L, Hgb 10.5 L, Hct 31.5 L, MCV 92.6, MCH 30.9, MCHC 33.3, RDW 13.8, RDW Differential 45.3 H, Plt Count 246, MPV 9.3, Immature Gran % (Auto) 0.200, Neut % (Auto) 86.4 H, Lymph % (Auto) 6.8 L, [place] % (Auto) 6.6, Eos % (Auto) 0.0, Baso % (Auto) 0.0, Absolute Neuts (auto) 10.8 H, Absolute Lymphs (auto) 0.84, Total Counted Not Reportable 10/08/18 04:25: Sodium 138, Potassium 4.6, Chloride 105, Carbon Dioxide 25.0, Anion Gap 8, BUN 20 H, Creatinine 0.99, Estim Creat Clear Calc 88.08, Est GFR (MDRD) Af Amer 101, Est GFR (MDRD) Non-Af 83, BUN/Creatinine Ratio 20.1 H, Glucose 243 H, Calcium 8.3 L Current Medications Acetaminophen (Tylenol) 650 mg PO Q6H PRN PRN PRN Reason: Non-cardiac pain (mod-severe) Albuterol Sulfate (Ventolin Aerosols) 2.5 mg INHALATION Q2H PRN PRN PRN Reason: dyspnea, wheezing Chlorhexidine Gluconate () 15 ml PO BID [facility] Last Admin: 10/08/18 08:40 Dose: Not Given Dextrose (D50w Syringe) 0 gm IV X1 PRN; Protocol PRN Reason: Hypoglycemia Diphenhydramine HCl (Benadryl) 50 mg IV Q6H [facility] Last Admin: 10/08/18 05:19 Dose: 50 mg Enoxaparin Sodium (Lovenox) 40 mg SC DAILY@1000 [facility] Last Admin: 10/07/18 09:38 Dose: 40 mg Famotidine (Pepcid) 20 mg GT BID [facility] Last Admin: 10/07/18 21:28 Dose: 20 mg Glucagon () 1 mg IM .X1 PRN PRN Reason: Hypoglycemia Hydralazine HCl (Apresoline Iv) 10 mg IV Q4H PRN PRN PRN Reason: SBP > 160 Fentanyl () 100 mls @ 5 mls/hr IV .Q20H [facility] Last Admin: 10/07/18 23:09 Dose: 5 mls/hr Dexmedetomidine HCl 400 mcg/ (Sodium Chloride) 100 mls @ 9.76 mls/hr CONT INF .[id number] [facility] Last Admin: 10/08/18 03:28 Dose: Not Given Sodium Chloride () 250 mls @ 15 mls/hr IV .[id number] PRN PRN Reason: SALINE FLUSH Enteral Nutritional Formula (Vital Af 1.2 Wily Liquid) 1,000 mls @ 65 mls/hr GT .[id number] [facility] Last Admin: 10/08/18 01:50 Dose: Not Given Insulin Human Lispro (Humalog Kwikpen (Bkc)) 0 unit SC Q6 [facility]; Protocol Last Admin: 10/08/18 05:19 Dose: 3 u Lorazepam (Ativan) 2 mg PO Q2H PRN PRN; Protocol PRN Reason: CIWA score > 8 but <15 Lorazepam (Ativan) 2 mg IV Q2H PRN PRN; Protocol PRN Reason: CIWA score > 8 but <15 Lorazepam (Ativan) 2 mg PO UD PRN; Protocol PRN Reason: CIWA score >/=15. Lorazepam (Ativan) 2 mg IV UD PRN; Protocol PRN Reason: CIWA score >/=15. Methylprednisolone (Solu-Medrol) 40 mg IV Q8 [facility] Last Admin: 10/08/18 05:19 Dose: 40 mg Ondansetron HCl (Zofran) 4 mg IV Q8H PRN PRN PRN Reason: NAUSEA/VOMITING Sodium Chloride () 5 - 15 ml IV UD PRN PRN Reason: SALINE FLUSH Last Admin: 10/08/18 05:26 Dose: 10 ml Medical Necessity - Tobacco Use Smoking Status: Current every day smoker Tobacco Use: Cigarettes Assessment/Plan All Active Problems Angioedema (Acute) 1. Acute respiratory failure, impending * improved. extubated today. * though no overt hypoxia, nor hypercapnea was documented, respiratory collapse may have be imminent without endotracheal intubation 2. Angioedema * appears to be improving * on methylprednisolone, diphenhydramine * etiology unclear: ACEi being the most likely culprit, but clouding the picture was a recent pneumonia vaccination (likely either PCV-13 or PPSV-23, not both) 3. Reported alcohol abuse: * alcohol level was negative on UDS * UDS + for opiates and BZDs (however, performed AFTER he received fentanyl and midazolam) * on thiamine and folate * CIWA protocol ordered * no clinical evidence of EtOH withdrawal at this time. 4. Hyperkalemia * resolved * not documented as hemolyzed * s/p Kayexalate * monitor 5. DM2 * metformin held * continue SSI 6. VTE prophylaxis: LMWH Code Visit Inpatient E&M: 59508 Subs Hosp L2
[2018-10-08] MEDS: Folic Acid 1 MG Tablet PO (12:13)
[2018-10-08] MEDS: Thiamine Hydrochloride 100 MG Tablet 200 MG PO (12:13)
[2018-10-08] MEDS: Enoxaparin 40 MG/0.4 ML Syringe SC (12:14)
[2018-10-08] MEDS: Famotidine 20 MG Tablet GT (12:20)
[2018-10-08 12:25] LABS: Bedside Glucose 179 mg/dL (70-110)
[2018-10-08 15:20] LABS: Bedside Glucose 250 mg/dL (70-110)
[2018-10-08] MEDS: Famotidine 20 MG Tablet PO (21:21)
[2018-10-08 21:41] LABS: Bedside Glucose 198 mg/dL (70-110)
[2018-10-09] VITALS (11 sets, daily range): BP systolic 121–148; BP diastolic 76–89; PULSE 63–78; RESP 14–19; TEMP 37–37.1; O2SAT 96–98
[2018-10-09 04:21] LABS: Absolute Lymphocyte Count 1.06 X10^3/ul (0.83-4.51); Absolute Neutrophil Count 11.6 X10^3/uL (2.0-7.7); Hematocrit 32.5 % (40-54); Hemoglobin 10.8 g/dl (13.0-16.5); Lymphocyte # 1.06 X10^3/ul (4.0); Mean Corp Hgb Conc 33.2 g/gl (32-36); Mean Corpuscular Hgb 30.9 pg (27.0-32.0); Mean Corpuscular Volume 92.9 fL (80-94); Monocyte# 0.56 X10^3/uL; Monocyte% 4.2 % (0-10); Neutrophil # 11.57 X10^3/uL (2.7-7.7); Neutrophil % 87.5 % (47-70); POSITIVE COUNT NO; POSITIVE DIFFERENTIAL NO; POSITIVE MORPHOLOGY NO; Platelet Count 250 K/mm3 (150-450); RBC Distribution Width CV 13.8 % (11.6-14.6); RBC Distribution Width SD 45.6 fl (35.1-43.9); White Blood Count 13.2 K/mm3 (4.4-11.0)
[2018-10-09 04:34] LABS: Anion Gap 7 (5-15); BUN 18 mg/dL (7-18); BUN/Creat Ratio 17.6 RATIO (10-20); Calcium,Total 8.7 mg/dL (8.5-10.1); Chloride 106 mmol/L (98-107); Creatinine, Serum 1.02 mg/dL (0.70-1.30); EST Glomerular Filtration Rate 81 mL/min (>60); Est Glom Filt Rate - Afr Amer 98 mL/min (>60); Estimated Creatinine Clearance 85.48 ml/min; Glucose 193 mg/dL (74-106); Potassium 4.1 mmol/L (3.5-5.1); Sodium Level 139 mmol/L (136-145)
[2018-10-09] MEDS: DiphenhydrAMINE 50 MG/ML Syringe IV (05:50)
[2018-10-09] MEDS: 0.9% NaCl Peripheral Flush Adult/Peds IV (05:50)
--- NOTE | 2018-10-09 06:49 | PCM.PN.INT ---
Subjective: Patient did well overnight. No acute issues were reported. Patient has remained on room air and voice is improving. Pharmacy was called and it was confirmed that patient had recently received lisinopril. Patient with no complaints this morning. General: Alert, Oriented x3, Cooperative, No apparent distress, - - More interactive today. Speaking in full sentences. HEENT: Atraumatic, PERRLA, EOMI, Normocephalic, - - No scleral icterus or injection noted. Oral: Moist Mucosa, No Gingival or Mucosal Lesions/ Ulcerations Neck: Supple, No JVD, No Nodes, Trachea Midline Lungs: Clear to auscultation, Normal air movement, No rhonchi, No wheeze, No rales, - - No dullness to percussion. Cardiovascular: Regular rate, Regular Rhythm, Normal S1, Normal S2, No murmurs, No rub noted, No Gallop Abdomen: Bowel Sounds Present, Soft, Non Tender, Non-Distended Extremities: No clubbing, No cyanosis, No edema Skin: No rashes, No breakdown Lymphatic: No Cervical, Supraclavicular, or Inguinal Adenopathy Neurological: Cranial nerves II-XII grossly intact, Neuro grossly intact, Motor Exam 5/5 strength throughout Psych/Mental Status: Alert and oriented to time, place, person, mood and affect Vital Signs Temp Pulse Resp BP Pulse Ox 37.0 C 76 19 H 148/89 H 98 10/09/18 04:00 10/09/18 06:00 10/09/18 06:00 10/09/18 06:00 10/09/18 06:00 Oxygen Flow Rate (L/min) 1 Oxygen Delivery Method Room Air Weight: 78.1 kg Body Mass Index (BMI) 24.5 Intake and Output for Last 24 Hours 10/07/18 10/08/18 10/09/18 23:59 23:59 23:59 Intake Total 2720.1 / 2720.1 2000.3 / 2000.3 300 / 300 Output Total 1650 / 1650 1625 / 1625 Balance 1070.1 / 1070.1 376.3 / 376.3 300 / 300 Labs (Last 48 Hours) 10/07/18 10/07/18 10/07/18 12:33 15:30 17:41 WBC RBC Hgb Hct MCV MCH MCHC RDW RDW Differential Plt Count MPV Immature Gran % (Auto) Neut % (Auto) Lymph % (Auto) [place] % (Auto) Eos % (Auto) Baso % (Auto) Absolute Neuts (auto) Absolute Lymphs (auto) Total Counted Specimen Type ART Sample Site L Radial pH 7.38 Bicarbonate Actual 19.7 L POC Total CO2 21 Base Excess -5 L O2 Saturation 96 O2 % 21 ABG pCO2 33.2 L ABG pO2 79 Melvin Test POS Respiration Rate 14 O2 Delivery Device Vent Minute Volume 7.00 Vent Mode A-C Tidal Volume 500 POC PEEP 5 Blood Gas Notified Whom ICU Blood Gas Notified Time 1529 Sodium Potassium Chloride Carbon Dioxide Anion Gap BUN Creatinine Estim Creat Clear Calc Est GFR (MDRD) Af Amer Est GFR (MDRD) Non-Af BUN/Creatinine Ratio Glucose Calcium POC Glucose 224 H 281 H 10/07/18 10/08/18 10/08/18 23:01 04:25 04:25 WBC 12.4 H RBC 3.40 L Hgb 10.5 L Hct 31.5 L MCV 92.6 MCH 30.9 MCHC 33.3 RDW 13.8 RDW Differential 45.3 H Plt Count 246 MPV 9.3 Immature Gran % (Auto) 0.200 Neut % (Auto) 86.4 H Lymph % (Auto) 6.8 L [place] % (Auto) 6.6 Eos % (Auto) 0.0 Baso % (Auto) 0.0 Absolute Neuts (auto) 10.8 H Absolute Lymphs (auto) 0.84 Total Counted Not Reportable Specimen Type Sample Site pH Bicarbonate Actual POC Total CO2 Base Excess O2 Saturation O2 % ABG pCO2 ABG pO2 Melvin Test Respiration Rate O2 Delivery Device Minute Volume Vent Mode Tidal Volume POC PEEP Blood Gas Notified Whom Blood Gas Notified Time Sodium 138 Potassium 4.6 Chloride 105 Carbon Dioxide 25.0 Anion Gap 8 BUN 20 H Creatinine 0.99 Estim Creat Clear Calc 88.08 Est GFR (MDRD) Af Amer 101 Est GFR (MDRD) Non-Af 83 BUN/Creatinine Ratio 20.1 H Glucose 243 H Calcium 8.3 L POC Glucose 239 H 10/08/18 10/08/18 10/08/18 05:15 12:12 21:18 WBC RBC Hgb Hct MCV MCH MCHC RDW RDW Differential Plt Count MPV Immature Gran % (Auto) Neut % (Auto) Lymph % (Auto) [place] % (Auto) Eos % (Auto) Baso % (Auto) Absolute Neuts (auto) Absolute Lymphs (auto) Total Counted Specimen Type Sample Site pH Bicarbonate Actual POC Total CO2 Base Excess O2 Saturation O2 % ABG pCO2 ABG pO2 Melvin Test Respiration Rate O2 Delivery Device Minute Volume Vent Mode Tidal Volume POC PEEP Blood Gas Notified Whom Blood Gas Notified Time Sodium Potassium Chloride Carbon Dioxide Anion Gap BUN Creatinine Estim Creat Clear Calc Est GFR (MDRD) Af Amer Est GFR (MDRD) Non-Af BUN/Creatinine Ratio Glucose Calcium POC Glucose 250 H 179 H 198 H 10/09/18 10/09/18 04:05 04:05 WBC 13.2 H RBC 3.50 L Hgb 10.8 L Hct 32.5 L MCV 92.9 MCH 30.9 MCHC 33.2 RDW 13.8 RDW Differential 45.6 H Plt Count 250 MPV 10.0 Immature Gran % (Auto) 0.300 Neut % (Auto) 87.5 H Lymph % (Auto) 8.0 L [place] % (Auto) 4.2 Eos % (Auto) 0.0 Baso % (Auto) 0.0 Absolute Neuts (auto) 11.6 H Absolute Lymphs (auto) 1.06 Total Counted Not Reportable Specimen Type Sample Site pH Bicarbonate Actual POC Total CO2 Base Excess O2 Saturation O2 % ABG pCO2 ABG pO2 Melvin Test Respiration Rate O2 Delivery Device Minute Volume Vent Mode Tidal Volume POC PEEP Blood Gas Notified Whom Blood Gas Notified Time Sodium 139 Potassium 4.1 Chloride 106 Carbon Dioxide 26.0 Anion Gap 7 BUN 18 Creatinine 1.02 Estim Creat Clear Calc 85.48 Est GFR (MDRD) Af Amer 98 Est GFR (MDRD) Non-Af 81 BUN/Creatinine Ratio 17.6 Glucose 193 H Calcium 8.7 POC Glucose Medical Necessity - Tobacco Use Smoking Status: Current every day smoker Tobacco Use: Cigarettes Assessment/Plan All Active Problems Angioedema (Acute) RECOMMENDATIONS: 1. Okay to discontinue thiamine and folate 2. Transition to p.o. Benadryl, Pepcid and steroids for another 24 hours 3. Defer to hospitalist on as needed bronchodilators with discharge. 4. Recommend outpatient complete PFT if patient agreeable 5. Okay to discharge from my perspective IMPRESSIONS: 1. Acute respiratory failure secondary to angioedema secondary to HANY inhibitor Some concern over the etiology of patient's angioedema. Pharmacy is verifying the patient did receive lisinopril recently. It is much more likely that the angioedema was secondary to an HANY inhibitor than a pneumococcal vaccine. Patient can continue prednisone, Benadryl and Pepcid for another 24 hours. Airway is patent and voice is strong. Okay to discharge from my perspective. 2. History of alcohol and tobacco dependency It is reasonable to continue as needed bronchodilators. Patient does not appear to be going through significant alcohol withdrawal at this time. Continue thiamine and folate repletion. Outpatient pulmonary function test for evaluation of COPD would be appropriate if patient agreeable. 3. Hyperkalemia Resolved. 4. Hypertension/hyperlipidemia/GERD/diabetes mellitus Complicates care, management, recovery and prognosis. Patient will need to check with PCP for alternatives for antihypertensive medications. Patient should not take lisinopril Code Visit Inpatient E&M: [id number] Subs Hosp L2
[2018-10-09 07:25] LABS: Bedside Glucose 177 mg/dL (70-110)
[2018-10-09] MEDS: Insulin Lispro 100 UNIT/ML INSULN.PEN SC (08:21)
[2018-10-09] MEDS: Famotidine 20 MG Tablet PO (08:21)
--- NOTE | 2018-10-09 09:07 | DCINST_ITS ---
- Discharge Diagnoses Current Active Problems: Current Active and Chronic Problems Angioedema (Acute) You will use the following diet at home:: Calorie/Carbohydrate Controlled (specify 1200, 1400, etc) - 1800 calories/day Your food should be the consistency of: Regular Your liquids should be the consistency of: Regular/Thin Discharge Activity: Return to Normal Activity Call your doctor if you observe: Fever of 101 or Higher, Shortness of breath, - - facial, throat swelling. Allergies/Adverse Reactions: Allergies lisinopril Allergy (Severe, Verified 10/09/18 09:00) Angioedema Medications to take at Discharge Metformin(XR) [Glucophage Xr] 2 tab PO DAILY 08/22/15 Atenolol 50 mg PO DAILY 10/08/18 Atorvastatin Calcium 40 mg PO QHS 10/08/18 Glimepiride [Amaryl] 4 mg PO BIDAC 10/08/18 Hydrochlorothiazide [Hctz] 12.5 mg PO DAILY 10/08/18 Acetaminophen [Tylenol Tablet] 650 mg PO Q6H PRN PRN tablet 10/09/18 DiphenhydrAMINE [Benadryl] 50 mg PO TID PRN PRN #1 capsule 10/09/18 Epi Pen (for allergic rxn) 0.3 mg IM X1 PRN #1 syringe 10/09/18 Famotidine [Pepcid] 20 mg PO BID #6 tablet 10/09/18 Prednisone 4 tab PO DAILY #12 tab.ds.pk 10/09/18 The following prescriptions were given: DiphenhydrAMINE [Benadryl] 50 mg PO TID PRN PRN #1 capsule PRN Reason: rash, itching Epi Pen (for allergic rxn) 0.3 mg IM X1 PRN #1 syringe PRN Reason: severe allergic reaction Prednisone 4 tab PO DAILY #12 tab.ds.pk Primary Care Physician: Care Physician,No Primary [NON-STAFF] - Test Results: Test results from this visit will be discussed in further detail at your follow- up appointment, if applicable. Please Follow Up With: Avtar Renee MD - post-hospital follow up When: 1-2 weeks Proposed Discharge Date: 10/09/18
--- NOTE | 2018-10-09 09:07 | PCM.DC.SUM ---
Discharge Date and Diagnosis - Problem List Patient Problems: Active and Suspected Problems Angioedema (Acute) Date of Admission: 10/06/18 Date of Discharge: 10/09/18 - Primary Discharge Diagnosis Active and Suspected Problems Angioedema (Acute) 1. Acute respiratory failure, impending improved. extubated today. though no overt hypoxia, nor hypercapnea was documented, respiratory collapse may have be imminent without endotracheal intubation 2. Angioedema appears to be improving on methylprednisolone, diphenhydramine etiology unclear: ACEi being the most likely culprit, but clouding the picture was a recent pneumonia vaccination (likely either PCV-13 or PPSV-23, not both) prednisone and H2B for 3 more days, for total of 5 days. 3. Reported alcohol abuse: alcohol level was negative on UDS UDS + for opiates and BZDs (however, performed AFTER he received fentanyl and midazolam) on thiamine and folate [facility] protocol ordered no clinical evidence of EtOH withdrawal at this time. 4. Hyperkalemia resolved not documented as hemolyzed s/p Kayexalate monitor - Secondary Discharge Diagnosis Chronic Problems HTN (hypertension) (Chronic) HLD (hyperlipidemia) (Chronic) Tobacco use (Chronic) Diabetes mellitus, type II (Chronic) Hospital Course and Treatment Imaging Results: Clinical Impression(s) from Imaging Studies Chest X-Ray 10/06/18 20:55 IMPRESSION: No acute findings in the lungs. An NG tube and ET tube are in place with the ETT 3.4 cm above the ofelia Electronically Signed: Florentin Garibay MD at 2:42 EDT Tel , Service support , Chest X-Ray 10/07/18 05:55 IMPRESSION: No interval change. Electronically Signed: Cruz Arellano DO at 8:21 EDT Tel [phone], Service support , Víctor De Paz MD: [facility] Operations: None Procedures: Intubation Summary of Care Provided: The patient is a 52 year old M sore throat swelling and shortness of breath. Began the day of admission. Concern was for impending airway collapse and the patient was emergently intubated in the emergency room. Patient was found to have angioedema and was started on steroids, H1 and H2 blockers. Patient was extubated on the and has done well. Suspicion for the angioedema is his HANY inhibitor, which has been held. Though complicating the picture, is that he did receive a pneumonia vaccination days prior. I do not feel that the pneumonia vaccination but cannot say definitively that it is not. Patient will receive an EpiPen to be used in case he does have severe allergic reaction but advised to return to the emergency room if he does even if he does take the EpiPen. [] Patient Problems: Active and Suspected Problems Angioedema (Acute) - Physical Exam General: Alert, No apparent distress HEENT: Atraumatic, Normocephalic Oral: Moist Mucosa, No Gingival or Mucosal Lesions/ Ulcerations Neck: No Nodes, Thyroid Normal Size and Texture Lungs: Clear to auscultation, Normal air movement, No rhonchi, No wheeze Cardiovascular: Regular rate, Regular Rhythm, Normal S1, Normal S2, No murmurs Abdomen: Bowel Sounds Present, Soft, Non Tender, Non-Distended, No Hepato-splenomegaly Extremities: No edema, No Calf Tenderness Vital Signs Temp Pulse Resp BP Pulse Ox 37.0 C 72 16 138/89 H 98 10/09/18 08:00 10/09/18 08:00 10/09/18 08:00 10/09/18 08:00 10/09/18 08:00 Oxygen Flow Rate (L/min) 1 Oxygen Delivery Method Room Air Weight: 78.1 kg Body Mass Index (BMI) 24.5 Intake and Output for Last 24 Hours 10/07/18 10/08/18 10/09/18 23:59 23:59 23:59 Intake Total 2720.1 / 2720.1 2000.3 / 2000.3 300 / 300 Output Total 1650 / 1650 1625 / 1625 Balance 1070.1 / 1070.1 376.3 / 376.3 300 / 300 Laboratory Tests Past 24 Hrs 10/09/18 10/09/18 04:05 04:05 WBC 13.2 H RBC 3.50 L Hgb 10.8 L Hct 32.5 L MCV 92.9 MCH 30.9 MCHC 33.2 RDW 13.8 RDW Differential 45.6 H Plt Count 250 MPV 10.0 Immature Gran % (Auto) 0.300 Neut % (Auto) 87.5 H Lymph % (Auto) 8.0 L [place] % (Auto) 4.2 Eos % (Auto) 0.0 Baso % (Auto) 0.0 Absolute Neuts (auto) 11.6 H Absolute Lymphs (auto) 1.06 Total Counted Not Reportable Sodium 139 Potassium 4.1 Chloride 106 Carbon Dioxide 26.0 Anion Gap 7 BUN 18 Creatinine 1.02 Estim Creat Clear Calc 85.48 Est GFR (MDRD) Af Amer 98 Est GFR (MDRD) Non-Af 81 BUN/Creatinine Ratio 17.6 Glucose 193 H Calcium 8.7 POC Glucose 10/09/18 10/08/18 10/08/18 07:21 21:18 12:12 POC Glucose 177 H 198 H 179 H 10/08/18 05:15 POC Glucose 250 H Discharge Diet: 1800 Calorie Control Diet Discharge Activity: Return to Normal Activity Call your doctor if you observe: Fever of 101 or Higher, Shortness of breath, - - facial, throat swelling. Home Medications: Medications to take at Discharge Metformin(XR) [Glucophage Xr] 2 tab PO DAILY 08/22/15 Atenolol 50 mg PO DAILY 10/08/18 Atorvastatin Calcium 40 mg PO QHS 10/08/18 Glimepiride [Amaryl] 4 mg PO BIDAC 10/08/18 Hydrochlorothiazide [Hctz] 12.5 mg PO DAILY 10/08/18 Acetaminophen [Tylenol Tablet] 650 mg PO Q6H PRN PRN tablet 10/09/18 DiphenhydrAMINE [Benadryl] 50 mg PO TID PRN PRN #1 capsule 10/09/18 Epi Pen (for allergic rxn) 0.3 mg IM X1 PRN #1 syringe 10/09/18 Famotidine [Pepcid] 20 mg PO BID #6 tablet 10/09/18 Prednisone 4 tab PO DAILY #12 tab.ds.pk 10/09/18 Following Prescrptions Were Given to Patient: DiphenhydrAMINE [Benadryl] 50 mg PO TID PRN PRN #1 capsule PRN Reason: rash, itching Epi Pen (for allergic rxn) 0.3 mg IM X1 PRN #1 syringe PRN Reason: severe allergic reaction Prednisone 4 tab PO DAILY #12 tab.ds.pk Primary Care Physician: Care Physician,No Primary [NON-STAFF] - Please Follow Up With: Avtar Renee MD - post-hospital follow up When: 1-2 weeks Disposition: Home Minutes spent on discharge:: 32 Patient Condition:: Good Medical Necessity - Tobacco Use Smoking Status: Current every day smoker Tobacco Use: Cigarettes Meaningful Use Info Meaningful Use Diagnoses (Choose all that apply): None applicable Code Visit Inpatient E&M: 93252 Disch Hosp
--- NOTE | 2018-10-09 09:11 | DS.PCM_ITS ---
Discharge Date and Diagnosis - Problem List Patient Problems: Active and Suspected Problems Angioedema (Acute) Date of Admission: 10/06/18 Date of Discharge: 10/09/18 - Primary Discharge Diagnosis Active and Suspected Problems Angioedema (Acute) 1. Acute respiratory failure, impending * improved. extubated today. * though no overt hypoxia, nor hypercapnea was documented, respiratory collapse may have be imminent without endotracheal intubation 2. Angioedema * appears to be improving * on methylprednisolone, diphenhydramine * etiology unclear: ACEi being the most likely culprit, but clouding the picture was a recent pneumonia vaccination (likely either PCV-13 or PPSV-23, not both) * prednisone and H2B for 3 more days, for total of 5 days. 3. Reported alcohol abuse: * alcohol level was negative on UDS * UDS + for opiates and BZDs (however, performed AFTER he received fentanyl and midazolam) * on thiamine and folate * [facility] protocol ordered * no clinical evidence of EtOH withdrawal at this time. 4. Hyperkalemia * resolved * not documented as hemolyzed * s/p Kayexalate * monitor - Secondary Discharge Diagnosis Chronic Problems HTN (hypertension) (Chronic) HLD (hyperlipidemia) (Chronic) Tobacco use (Chronic) Diabetes mellitus, type II (Chronic) Hospital Course and Treatment Imaging Results: Clinical Impression(s) from Imaging Studies Chest X-Ray 10/06/18 20:55 IMPRESSION: No acute findings in the lungs. An NG tube and ET tube are in place with the ETT 3.4 cm above the ofelia Electronically Signed: Florentin Garibay MD at 2:42 EDT Tel , Service support , Chest X-Ray 10/07/18 05:55 IMPRESSION: No interval change. Electronically Signed: Cruz Arellano DO at 8:21 EDT Tel [phone], Service support , Víctor De Paz MD: [facility] Operations: None Procedures: Intubation Summary of Care Provided: The patient is a 52 year old M sore throat swelling and shortness of breath. Began the day of admission. Concern was for impending airway collapse and the patient was emergently intubated in the emergency room. Patient was found to have angioedema and was started on steroids, H1 and H2 blockers. Patient was extubated on the and has done well. Suspicion for the angioedema is his HANY inhibitor, which has been held. Though complicating the picture, is that he did receive a pneumonia vaccination days prior. I do not feel that the pneumonia vaccination but cannot say definitively that it is not. Patient will receive an EpiPen to be used in case he does have severe allergic reaction but advised to return to the emergency room if he does even if he does take the EpiPen. [] Patient Problems: Active and Suspected Problems Angioedema (Acute) - Physical Exam General: Alert, No apparent distress HEENT: Atraumatic, Normocephalic Oral: Moist Mucosa, No Gingival or Mucosal Lesions/ Ulcerations Neck: No Nodes, Thyroid Normal Size and Texture Lungs: Clear to auscultation, Normal air movement, No rhonchi, No wheeze Cardiovascular: Regular rate, Regular Rhythm, Normal S1, Normal S2, No murmurs Abdomen: Bowel Sounds Present, Soft, Non Tender, Non-Distended, No Hepato- splenomegaly Extremities: No edema, No Calf Tenderness Vital Signs Temp Pulse Resp BP Pulse Ox 37.0 C 72 16 138/89 H 98 10/09/18 08:00 10/09/18 08:00 10/09/18 08:00 10/09/18 08:00 10/09/18 08:00 Oxygen Flow Rate (L/min) 1 Oxygen Delivery Method Room Air Weight: 78.1 kg Body Mass Index (BMI) 24.5 Intake and Output for Last 24 Hours 10/07/18 10/08/18 10/09/18 23:59 23:59 23:59 Intake Total 2720.1 / 2720.1 2001.3 / 2001.3 300 / 300 Output Total 1650 / 1650 1625 / 1625 Balance 1070.1 / 1070.1 376.3 / 376.3 300 / 300 Laboratory Tests Past 24 Hrs 10/09/18 10/09/18 04:05 04:05 WBC 13.2 H RBC 3.50 L Hgb 10.8 L Hct 32.5 L MCV 92.9 MCH 30.9 MCHC 33.2 RDW 13.8 RDW Differential 45.6 H Plt Count 250 MPV 10.0 Immature Gran % (Auto) 0.300 Neut % (Auto) 87.5 H Lymph % (Auto) 8.0 L [place] % (Auto) 4.2 Eos % (Auto) 0.0 Baso % (Auto) 0.0 Absolute Neuts (auto) 11.6 H Absolute Lymphs (auto) 1.06 Total Counted Not Reportable Sodium 139 Potassium 4.1 Chloride 106 Carbon Dioxide 26.0 Anion Gap 7 BUN 18 Creatinine 1.02 Estim Creat Clear Calc 85.48 Est GFR (MDRD) Af Amer 98 Est GFR (MDRD) Non-Af 81 BUN/Creatinine Ratio 17.6 Glucose 193 H Calcium 8.7 POC Glucose 10/09/18 10/08/18 10/08/18 07:21 21:18 12:12 POC Glucose 177 H 198 H 179 H 10/08/18 05:15 POC Glucose 250 H Discharge Diet: 1800 Calorie Control Diet Discharge Activity: Return to Normal Activity Call your doctor if you observe: Fever of 101 or Higher, Shortness of breath, - - facial, throat swelling. Home Medications: Medications to take at Discharge Metformin(XR) [Glucophage Xr] 2 tab PO DAILY 08/22/15 Atenolol 50 mg PO DAILY 10/08/18 Atorvastatin Calcium 40 mg PO QHS 10/08/18 Glimepiride [Amaryl] 4 mg PO BIDAC 10/08/18 Hydrochlorothiazide [Hctz] 12.5 mg PO DAILY 10/08/18 Acetaminophen [Tylenol Tablet] 650 mg PO Q6H PRN PRN tablet 10/09/18 DiphenhydrAMINE [Benadryl] 50 mg PO TID PRN PRN #1 capsule 10/09/18 Epi Pen (for allergic rxn) 0.3 mg IM X1 PRN #1 syringe 10/09/18 Famotidine [Pepcid] 20 mg PO BID #6 tablet 10/09/18 Prednisone 4 tab PO DAILY #12 tab.ds.pk 10/09/18 Following Prescrptions Were Given to Patient: DiphenhydrAMINE [Benadryl] 50 mg PO TID PRN PRN #1 capsule PRN Reason: rash, itching Epi Pen (for allergic rxn) 0.3 mg IM X1 PRN #1 syringe PRN Reason: severe allergic reaction Prednisone 4 tab PO DAILY #12 tab.ds.pk Primary Care Physician: Care Physician,No Primary [NON-STAFF] - Please Follow Up With: Avtar Renee MD - post-hospital follow up When: 1-2 weeks Disposition: Home Minutes spent on discharge:: 32 Patient Condition:: Good Medical Necessity - Tobacco Use Smoking Status: Current every day smoker Tobacco Use: Cigarettes Meaningful Use Info Meaningful Use Diagnoses (Choose all that apply): None applicable Code Visit Inpatient E&M: 03579 Disch Hosp
== END 2018-10-09 09:40 | disposition home or self-care (01) | DRG 916 ==
LOC: ED 20:16 → ICU 20:46
PROVIDERS: Internal Medicine Critical Care Medicine; Admitting Provider Family Medicine; Emergency Provider Emergency Medicine; Family Provider Family Medicine; PCP Family Medicine
DX: T78.3XXA Angioneurotic edema, initial encounter (principal); I10 Essential (primary) hypertension; E78.5 Hyperlipidemia, unspecified; E11.9 Type 2 diabetes mellitus without complications; F17.210 Nicotine dependence, cigarettes, uncomplicated; E87.5 Hyperkalemia; F10.10 Alcohol abuse, uncomplicated; Z79.84 Long term (current) use of oral hypoglycemic drugs
CPT/HCPCS: 31500; 31720; 36600; 71045; 80048; 80053; 80307; 80320; 82550; 82803; 82962; 83735; 84100; 84478; 85025; 93005; 94002; 94003; 94660; 95831; 97161; 97165; 97802; 99251; 99285; 99406; J7030; A4216; G0463; G0480; J0330; J3490

== ENCOUNTER 2022-03-26 15:22 | Emergency (ER) | payer BC, SELFPAY ==
[2022-03-26 15:24] VITALS: BP 146/98; PULSE 99; RESP 19; TEMP 36.1; O2SAT 92; BMI 27.7
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
[2022-03-26 18:00] VITALS: BP 103/77; PULSE 120; RESP 18; O2SAT 97
[2022-03-26 18:41] VITALS: BP 138/77; PULSE 62; RESP 15; O2SAT 98
== END 2022-03-26 18:42 | disposition home or self-care (01) ==
PROVIDERS: Emergency Provider Emergency Medicine; PCP Family Medicine; Visit Provider Emergency Medicine
DX: S22.32XA Fracture of one rib, left side, initial encounter for closed fracture (principal); F10.929 Alcohol use, unspecified with intoxication, unspecified; E11.9 Type 2 diabetes mellitus without complications; V88.8XXA Person injured in other specified noncollision transport accidents involving motor vehicle, nontraffic, initial encounter; Y90.7 Blood alcohol level of 200-239 mg/100 ml; F17.210 Nicotine dependence, cigarettes, uncomplicated; Z79.84 Long term (current) use of oral hypoglycemic drugs
CPT/HCPCS: 70450; 71045; 72125; 82077; 99284; A4216